=== PATIENT | female | born 1955 | race Caucasian/White ===

== ENCOUNTER → 2018-06-11 11:51 | Outpatient (CLI) | payer OTHER, SELFPAY ==
--- NOTE | 2018-06-11 | DI.RAD.S_ITS ---
PROCEDURE: XR HAND LT MIN 3V INDICATIONS: SPRAIN OF LEFT WRIST TECHNIQUE: 3 views of the hand(s) acquired. COMPARISON: [facility], [place], XR WRIST LT MIN 3V, 06/11/2018, 11:33. [facility], [place], HAND 3V RIGHT, 05/11/2014, 16:18. FINDINGS: Bones: No fractures or dislocations. Carpal bones are normally aligned. No suspicious bony lesions. Age-appropriate bony degenerative changes are seen. Soft tissues: No suspicious soft tissue calcifications. IMPRESSION: Unremarkable imaging examination for age. Dictated by: Chin Austin M.D. on 06/11/2018 at 11:06 Approved by: Chin Austin M.D. on 06/11/2018 at 11:07
--- NOTE | 2018-06-11 | DI.RAD.S_ITS ---
PROCEDURE: XR WRIST LT MIN 3V INDICATIONS: SPRAIN OF LEFT WRIST TECHNIQUE: 4 views of the wrist were acquired. COMPARISON: [facility], [place], XR HAND LT MIN 3V, 06/11/2018, 11:33. FINDINGS: Bones: No fractures or dislocations. Age-appropriate bony degenerative changes are seen. No suspicious bony lesions. Scaphoid view: No navicular fractures are seen. Soft tissues: No suspicious soft tissue calcifications. IMPRESSION: No displaced fractures are seen. If there is snuffbox tenderness (or other clinical suspicion for a fracture not seen on these images) then a repeat examination would be recommended in 10 to 14 days, following splinting. Dictated by: Chin Austin M.D. on 06/11/2018 at 11:07 Approved by: Chin Austin M.D. on 06/11/2018 at 11:08
== END ==
PROVIDERS: Family Provider Internal Medicine; PCP Internal Medicine; Visit Provider Internal Medicine
DX: S63.502A Unspecified sprain of left wrist, initial encounter (principal)
CPT/HCPCS: 73110; 73130

== ENCOUNTER → 2018-08-29 13:41 | Outpatient (CLI) | payer OTHER, SELFPAY ==
--- NOTE | 2018-08-29 | DI.RAD.S_ITS ---
PROCEDURE: XR CHEST 2V INDICATIONS: Acute bronchitis, unspecified TECHNIQUE: 2 views of the chest were acquired. COMPARISON: [facility], , CHEST 2 VIEW, 04/09/2017, 16:10. FINDINGS: Surgical changes and devices: None. Lungs and pleura: No pleural effusions or pneumothorax. Lungs are clear. Mediastinum: Mediastinal contours are normal. Heart size is normal. Bones and chest wall: No suspicious bony abnormalities. Mild lateral curvature of the spine. Soft tissues appear unremarkable. IMPRESSION: No acute disease. Dictated by: Alex Sanders M.D. on 08/29/2018 at 15:18 Approved by: Alex Sanders M.D. on 08/29/2018 at 15:19
== END ==
PROVIDERS: PCP Internal Medicine; Visit Provider Internal Medicine
DX: J20.9 Acute bronchitis, unspecified (principal)
CPT/HCPCS: 71046

== ENCOUNTER 2019-03-12 07:13 | Emergency (ER) | payer MEDICARE, OTHER, SELFPAY ==
[2019-03-12 07:20] VITALS: BP 146/74; PULSE 91; RESP 18; TEMP 36.6; O2SAT 95; BMI 36.8
--- NOTE | 2019-03-12 08:04 | ED_ITS ---
HPI - Eye Problem General Chief complaint: Eye Problems Stated complaint: thinks something is in right eye,draining pain Time Seen by Provider: 03/12/19 07:31 Source: patient Mode of arrival: ambulatory Limitations: no limitations History of Present Illness HPI Narrative: The patient presents to the emergency department complaining of a sharp pain, along with irritation, the medial aspect of her right eye for the last 3 days. Patient states she was outside while some trees were being cleared a few days ago, when she felt as though something blew into her eye. She states she attempted to irrigate with water, but that the eyes been progressively becoming more irritated since. Patient states she does not were contact lenses, and had LASIK procedure done in 2011. She denies any fevers, rhinorrhea, or other upper respiratory symptoms recently. She denies allergic rhinitis. She states her other eyes starting to become irritated as well. Patient states she has had a mucus type discharge which has been causing her eyelashes to be stuck together on the right in the morning. No other complaints at this time. No history of glaucoma. No headache or blurred vision. No globe pain. no temporal pain. Related Data Home Medications Medication Instructions Recorded Confirmed aspirin [Adult Low Dose Aspirin] 81 mg PO DAILY 03/12/19 03/12/19 metoprolol tartrate 25 mg PO DAILY 03/12/19 03/12/19 Previous Rx's Medication Instructions Recorded albuterol sulfate [Ventolin HFA] 0 puff INH Q4HP PRN #1 ea 04/09/17 benzonatate [Tessalon Perles] 100 mg PO TIDP PRN #10 cap 04/09/17 prednisone 20 mg PO QDAY #8 tab 04/09/17 gentamicin 1 drop EYE-BOTH BID 7 Days #5 ml 03/12/19 Allergies Allergy/AdvReac Type Severity Reaction Status Date / Time iodine [IODINE] Allergy Severe RASH Verified 03/12/19 07:44 Penicillins [PENICILLINS] Allergy Severe SWELLING Verified 03/12/19 07:44 morphine [MORPHINE] AdvReac Mild N/V Verified 03/12/19 07:44 MUSHROOMS Allergy Severe STOPPED Uncoded 03/12/19 07:44 BREATHING Review of Systems Constitutional Denies chills, Denies fever(s), Denies lethargy and Denies weakness Eyes Denies change in vision, Reports eye discharge, Reports irritation and Denies loss of vision ENT Ears, Nose, Mouth, and Throat: Denies change in voice, Denies neck pain and Denies sore throat Cardiovascular Denies chest pain, Denies irregular heart rhythm, Denies lightheadedness, Denies palpitations, Denies dyspnea, Denies dyspnea on exertion and Denies orthopnea Respiratory Denies cough, Denies dyspnea, Denies dyspnea on exertion and Denies wheezing Gastrointestinal Gastrointestinal: Denies abdominal pain, Denies change in bowel habits, Denies diarrhea, Denies nausea and Denies vomiting Genitourinary Denies hematuria, Denies flank pain, Denies urinary incontinence and Denies urinary urgency Musculoskeletal Denies neck pain Integumentary/Breasts Denies pruritus, Denies erythema, Denies rash and Denies wounds Neurologic Denies confusion, Denies loss of vision and Denies weakness Psychiatric Denies anxiety, Denies confusion, Denies depression, Denies homicidal ideation and Denies suicidal ideation Endocrine Denies palpitations Hematologic/Lymphatic Denies easy bruising Allergic/Immunologic Denies wheezing [facility] Medical History Asthma (Acute) Surgical History History of ankle surgery (Acute) History of appendectomy (Acute) Social History Smoking Status: Former smoker Social History Smoking Status: Former smoker Exam Initial Vital Signs Initial Vital Signs: Vital Signs Temperature 97.9 F 03/12/19 07:20 Pulse Rate 91 H 03/12/19 07:20 Respiratory Rate 18 03/12/19 07:20 Blood Pressure 146/74 H 03/12/19 07:20 Pulse Oximetry 95 03/12/19 07:20 Const General: cooperative and well developed Nutritional Appearance: well nourished Orientation: alert, awake, oriented x3 and not confused [facility] Head: normocephalic and atraumatic Ears: external ears normal Nose: external nose normal and No nasal discharge Face and sinus: face symmetric and No dry mucous membranes Mouth: oral mucosae normal and moist mucous membranes Teeth and gingiva: dentition normal Eyes General: appearance normal, both eyes and all related structures Eyelids: eyelids normal Conjunctivae: conjunctival abnormality ( injection, moderate) right Sclera: sclerae normal Pupils: PERRL EOM: EOM intact bilaterally Direct ophthalmoscopy: normal light reflex Other: Patient has a mild amount of mucus discharge her right eye. With fluorescein examination, patient is noted to have to 1 mm corneal abrasions at approximately the 8 o'clock position. No foreign body is noted with magnification. Lid eversion reveals no retained foreign body, including in the area where the patient is feeling maximal pain. there is a tiny, punctate abrasion of the mucosal surface of the patient's upper eyelid medially, in the area of the discomfort, but otherwise, no evidence of foreign material and no scleral abrasion in the area. Neck Neck: normal visual inspection, trachea midline, No lymphadenopathy, No midline deformity and No JVD Lymphatic: No lymphedema Chest Chest: normal inspection of the chest Resp Effort & Inspection: normal respiratory effort, able to speak in complete sentences, no respiratory distress and no use of accessory muscles Back/Spine/Pelvis Back: No CVA tenderness Cervical Spine: cervical ROM normal and No pain with cervical ROM Thoracic/Lumbar Spine: thoracic and lumbar spine normal to inspection Skin General: no rashes or lesions noted, No jaundice and No petechiae Neuro General: alert, oriented x3, gait normal and no focal motor deficits Speech: speech normal Extrem General: full ROM Psych Appearance: well kempt Mental Status: mental status grossly normal Attitude: cooperative Thought Content: normal and suicidality Judgment: judgment good Course Course Narrative: Patient was irrigated with a Dannie lens. Visual acuities were performed, as per nursing notes. I discussed with the patient that I had not identified any foreign body involving any of the structures of her eye. I discussed with her the punctate finding inside her medial upper lid, which could represent a small abrasion/puncture. I will put her on antibiotic drops, and have discussed with her that if her symptoms are not better in the next several days she will need to follow up with an ophthalmology specialist. Patient is agreeable to this plan, and we have discussed symptomatic management at home. Her is with her. We have discussed the usual indications for return. Orders Ordered: Discontinued Medications Proparacaine HCl (Parcaine 0.5% Ophth Noemi) 1 drops EYE-RIGHT NOW ONE Stop: 03/12/19 09:08 Last Admin: 03/12/19 08:35 Dose: 4 drop Vital Signs - 8 hr 03/12/19 07:20 Temperature 97.9 F Pulse Rate 91 H Respiratory Rate 18 Blood Pressure 146/74 H Pulse Oximetry 95 MDM - Eye Problem Medical Records Attestation: I reviewed the patient's medical records. Discharge Plan Departure Patient Disposition: Home Clinical Impression: Pain, eye, right Conjunctivitis Qualifiers: Conjunctivitis type: acute Acute conjunctivitis type: unspecified Laterality: right Qualified Code(s): H10.31 - Unspecified acute conjunctivitis, right eye Discharge Date/Time: 03/12/19 09:39 Interventions: ED Discharge Assessment Last Done: 03/12/19 09:39 Instructions: DI for Conjunctivitis, DI for Eye Pain Activity Restrictions/Additional Instructions: Full examination of your eye, including with magnification, reveals no evidence of foreign material. You have a couple of very small scratches on the surface of the eye though these are not in the area of your pain. There is evidence of a very tiny puncture mercy on the inside of your upper eyelid, near the area where you are hurting, and this may be evidence of a foreign piece of material that was there before. However, nothing has been visualized that can be removed. Please take the eyedrops, as directed, and if symptoms are not improved in the next several days, then you need to make an appointment to see the eyeletter. Prescriptions: New gentamicin 0.3 % drops 1 drop EYE-BOTH BID 7 Days Qty: 5 RF: 0 No Action prednisone 20 MG tablet 20 mg PO QDAY Qty: 8 RF: 0 benzonatate [Tessalon Perles] 100 MG capsule 100 mg PO TIDP PRNQty: 10 RF: 0 albuterol sulfate [Ventolin HFA] 90 MCG/PUFF HFA aerosol inhaler INH Q4HP PRNQty: 1 RF: 0 metoprolol tartrate 25 mg tablet 25 mg PO DAILY RF: 0 aspirin [Adult Low Dose Aspirin] 81 mg Tablet,Delayed Release (Dr/Ec) 81 mg PO DAILY RF: 0 Referrals: [facility] [Provider Group] Gabriella Watts MD [Primary Care Provider] -
[2019-03-12] MEDS: PROPARACAINE 0.5% OPHTH SOL 1 DROPS EYE-RIGHT (08:35)
--- NOTE | 2019-03-12 09:33 | PC.NURSE ---
Dannie lens to right eye to irrigate. pt tolerated 400 cc warm normal saline. needed to stop infusion and instill eye gtts and restart when eye became numb. MD aware. reports no difference with instillation. Md also aware.
[2019-03-12 09:39] VITALS: BP 127/72; PULSE 93; RESP 18; TEMP 36.6; O2SAT 99
--- NOTE | 2019-03-17 17:49 | CM.SWNOTE ---
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 Pt reported that she is feeling better. She is continuing to take the eye drops as prescribed. She reported that she has an appointment with an eye doctor on . ( 3 days from now) She did not have any questions about her discharge and expressed appreciation about the care received from the emergency room staff and the phone call.
== END 2019-03-12 09:39 | disposition home or self-care (01) ==
PROVIDERS: Emergency Provider Emergency Medicine; Family Provider Internal Medicine; PCP Internal Medicine
DX: H10.31 Unspecified acute conjunctivitis, right eye (principal)
CPT/HCPCS: 99283

== ENCOUNTER 2020-01-02 17:36 | Emergency (ER) | payer MEDICARE, OTHER, SELFPAY ==
[2020-01-02 17:46] VITALS: BP 175/83; PULSE 82; RESP 14; TEMP 36.8; O2SAT 95; BMI 38.0
[2020-01-02 18:48] LABS: RBC Urine None Seen (0-5/HPF)
[2020-01-02 18:57] LABS: Bacteria Urine Few (2-10); Culture Indicated Urine Cult Not Indicated; Mucus Urine 2+ (Negative); Squamous Epithelial Cell Urine 5-10 /HPF (0-5/HPF); WBC Urine 0-1/HPF (0-5/HPF)
--- NOTE | 2020-01-02 19:12 | ED_ITS ---
HPI - General Adult General Chief complaint: Urogenital-Female Stated complaint: abd pain, thinks UTI Time Seen by Provider: 01/02/20 18:51 Source: patient Mode of arrival: Ambulatory Limitations: no limitations History of Present Illness HPI narrative: 64-year-old female here for evaluation of left lower quadrant a bdominal pain. States the symptoms started within the past couple days. No nausea vomiting. Has some diarrhea over the past couple days but nothing today. She is also complaining of burning with urination. She also states she has been having some problems controlling her urine is specially when she is coughing and laughing and standing. This is not new. Has been going on since November. She has not followed up with claims support specialist her primary doctor for this. Related Data Home Medications Medication Instructions Recorded Confirmed aspirin [Adult Low Dose Aspirin] 81 mg PO DAILY 03/12/19 03/12/19 metoprolol tartrate 25 mg PO DAILY 03/12/19 03/12/19 Previous Rx's Medication Instructions Recorded albuterol sulfate [Ventolin HFA] 0 puff INH Q4HP PRN #1 ea 04/09/17 benzonatate [Tessalon Perles] 100 mg PO TIDP PRN #10 cap 04/09/17 prednisone 20 mg PO QDAY #8 tab 04/09/17 ciprofloxacin HCl 500 mg PO BID 10 Days #20 tab 01/02/20 fluconazole [Diflucan] 100 mg PO DAILY #2 tab 01/02/20 metronidazole [Flagyl] 500 mg PO TID 10 Days #30 tab 01/02/20 Allergies Allergy/AdvReac Type Severity Reaction Status Date / Time iodine [IODINE] Allergy Severe RASH Verified 01/02/20 17:46 Penicillins [PENICILLINS] Allergy Severe SWELLING Verified 01/02/20 17:46 morphine [MORPHINE] AdvReac Mild N/V Verified 01/02/20 17:46 MUSHROOMS Allergy Severe STOPPED Uncoded 03/12/19 07:44 BREATHING Review of Systems Constitutional Constitutional: Denies fever(s) Cardiovascular Cardiovascular: Denies chest pain and Denies dyspnea Respiratory Respiratory: Denies dyspnea Gastrointestinal Gastrointestinal: Reports abdominal pain and Denies change in stool character Genitourinary Genitourinary: Denies difficulty voiding, Reports dysuria, Reports urinary incontinence and Reports vaginal discharge Musculoskeletal Musculoskeletal: Denies arthralgias Integumentary/Breasts Skin/Breast: Denies rash Hematologic/Lymphatic Hematologic/Lymphatic: Denies easy bleeding and Denies easy bruising Patient History Medical History Asthma (Acute) Surgical History History of ankle surgery (Acute) History of appendectomy (Acute) Social History Smoking Status: Former smoker Smoking Status: Former smoker alcohol intake frequency: holidays/special occasions only Substance Use Type: does not use Exam Initial Vital Signs Initial Vital Signs: Vital Signs Temperature 98.2 F 01/02/20 17:46 Pulse Rate 82 01/02/20 17:46 Respiratory Rate 14 01/02/20 17:46 Blood Pressure 175/83 H 01/02/20 17:46 Pulse Oximetry 95 01/02/20 17:46 Const General: cooperative, comfortable, well developed, well groomed and No acute distress Limitations: mental status not altered HENME Head: normal to inspection and normocephalic Resp Effort & Inspection: normal respiratory effort Auscultation: clear to auscultation bilaterally Cardio Rate: regular rate Rhythm: regular rhythm GI Inspection: non-distended Palpation: soft, No firm and tender (Left lower quadrant) Back/Spine/Pelvis Back: No CVA tenderness Skin Lesions: no lesions Rashes: no rashes Neuro General: alert, awake and oriented x3 Cognition: normal cognition Speech: speech normal Extrem General: normal to inspection and capillary refill normal Psych Appearance: grossly normal and well kempt Scores GCS [place] coma scale eye opening: Spontaneous [place] coma scale verbal response: Orientated [place] coma scale motor response: Obey commands [place] coma scale total score: 15 Course Orders Ordered: ED Orders 01/02/20 18:26 Urine Culture Stat Urine Microscopic Stat 01/02/20 19:24 CT kidney ureter bladder (KUB) Stat 01/02/20 19:36 Complete Blood Count AUTO DIFF Stat Lipase Stat Discontinued Medications Ciprofloxacin (Cipro) 500 mg PO NOW ONE Stop: 01/02/20 20:23 Last Admin: 01/02/20 20:33 Dose: 500 mg Documented by: MICHAEL Sodium Chloride (Normal Saline 0.9%) 1,000 mls @ 1,000 mls/hr IV BOLUS ONE Stop: 01/02/20 20:10 Last Infusion: 01/02/20 20:57 Dose: 0 mls/hr Documented by: Admin: 01/02/20 19:54 Dose: 1,000 mls/hr Documented by: MICHAEL Ketorolac Tromethamine (Toradol) 30 mg IV NOW ONE Stop: 01/02/20 20:23 Last Admin: 01/02/20 20:33 Dose: 30 mg Documented by: MICHAEL Metronidazole (Metronidazole) 500 mg PO NOW ONE Stop: 01/02/20 20:23 Last Admin: 01/02/20 20:33 Dose: 500 mg Documented by: MICHAEL Vital Signs Vital signs: Vital Signs - 8 hr 01/02/20 17:46 01/02/20 19:57 01/02/20 21:17 Temperature 98.2 F Pulse Rate 82 85 70 Respiratory Rate 14 18 18 Blood Pressure 175/83 H Blood Pressure [Right Arm] 144/95 H 143/88 H Pulse Oximetry 95 99 98 Medical Decision Making Lab Data Lab results reviewed: Yes I reviewed the patient's lab results. Result diagrams: 01/02/20 19:36 Labs: Lab Results 01/02/20 01/02/20 01/02/20 Range/Units 18:26 19:36 19:36 WBC 13.4 H (4.5-11.0) X10^3/uL RBC 5.25 H (4.0-5.2) X10^6/uL Hgb 15.0 (12.0-16.0) g/dL Hct 44.9 (36-46) % MCV 85.4 (80-100) fL MCH 28.5 (26-34) PG MCHC 33.4 (30-36) % RDW 14.5 (11.6-14.8) % Plt Count 238 (150-400) X10^3/uL Neut % (Auto) 71.6 (50-75) % Lymph % (Auto) 19.3 L (25-40) % [place] % (Auto) 6.7 (3-14) % Eos % (Auto) 1.6 L (2-4) % Baso % (Auto) 0.8 (0-2) % Neut # (Auto) 9600 H (5023-1378) /uL Lymph # (Auto) 2600 (2167-0379) /uL [place] # (Auto) 900 (0-900) /uL Eos # (Auto) 200 (0-450) /uL Baso # (Auto) 100 (0-100) /uL Total Counted Cancelled Seg Neutrophils % Cancelled Band Neutrophils % Cancelled Lymphocytes % (Manual) Cancelled Atypical Lymphs % Cancelled Monocytes % (Manual) Cancelled Eosinophils % (Manual) Cancelled Basophils % (Manual) Cancelled Metamyelocytes % Cancelled Myelocytes % Cancelled Promyelocytes % Cancelled Blast Cells % Cancelled Neutrophils # (Manual) Cancelled Nucleated RBCs Cancelled Differential Comment Cancelled Hypersegmented Neuts Cancelled Hypogranular Neuts Cancelled Reactive Lymphocytes Cancelled Plasma Cells Cancelled Smudge Cells Cancelled Other Cell Type Cancelled Toxic Granulation Cancelled Toxic Vacuolation Cancelled Dohle Bodies Cancelled [place] Rods Cancelled WBC Morphology Comment Cancelled Platelet Estimate Cancelled Clumped Platelets Cancelled Plt Morphology Comment Cancelled RBC Morphology Cancelled Dimorphic RBCs Cancelled Polychromasia Cancelled Hypochromasia Cancelled Poikilocytosis Cancelled Basophilic Stippling Cancelled Anisocytosis Cancelled Microcytosis Cancelled Macrocytosis Cancelled Spherocytes Cancelled Pappenheimer Bodies Cancelled Sickle Cells Cancelled Target Cells Cancelled Tear Drop Cells Cancelled Ovalocytes Cancelled Stomatocytes Cancelled Helmet Cells Cancelled [place] Bodies Cancelled [place] Rings Cancelled [place] Cells Cancelled Acanthocytes (Spur) Cancelled Rouleaux Cancelled Schistocytes Cancelled Lipase 110 (23-300) U/L Urine RBC None seen (0-5/HPF) Urine WBC 0-1/hpf (0-5/HPF) Ur Squamous Epith Cells 5-10 /hpf H (0-5/HPF) Urine Bacteria Few (2-10) H (None) Urine Mucus 2+ H (Negative) Ur Culture Indicated? Cult not indicated Urine Dip Bedside Urine Glucose Negative Bedside Urine Bilirubin - Negative Bedside Urine Ketone - Negative Urine Specific [place] 1.025 Bedside Urine Occult Blood - Negative Bedside Urine pH 6 Bedside Urine Protein +/- 15 Bedside Urine Urobilinogen +/- 1mg Bedside Urine Nitrite - Negative Bedside Urine Leukocytes - Negative Esterase Point of care testing: Urine Dip Bedside Urine Glucose Negative Bedside Urine Bilirubin - Negative Bedside Urine Ketone - Negative Urine Specific [place] 1.025 Bedside Urine Occult Blood - Negative Bedside Urine pH 6 Bedside Urine Protein +/- 15 Bedside Urine Urobilinogen +/- 1mg Bedside Urine Nitrite - Negative Bedside Urine Leukocytes - Negative Esterase Imaging Data CT scan - abdomen/pelvis: Radiologist's Impression: [address] [address] [address] Scan Report Signed Patient: Dano Mike#: [id number] : 4Acct:[id number] Age/Sex: 64 / FDate of Service: 01/02/20 Loc: ED Accession Number: [id number] Procedure: CT kidney ureter bladder (KUB) Ordering Provider: Montrell Del Angel D.O. PROCEDURE: CT KIDNEY URETER BLADDER (KUB) INDICATIONS: LLQ ABD pain TECHNIQUE: Noncontrast 5 mm thick sections acquired from the diaphragms to the symphysis. 5 mm thick coronal and sagittal reformats were then performed. For radiation dose reduction, the following was used: automated exposure control, adjustment of mA and/or kV according to patient size. COMPARISON: [facility], CT, PE STUDY (CTA CHEST), 10/07/2015, 18:21. FINDINGS: Image quality: Excellent. Lung bases: Lung bases are clear. Heart size is normal. There is a eipil-zr-ilbuecel sized hiatal hernia. Urinary system: There is a 7 x 3 mm elongated stone in the superior pole of the right kidney. No right hydronephrosis. Both kidneys are normal in size without perinephric fat stranding. Parapelvic cysts are noted in right kidney. Both ureters appear non- dilated throughout their expected courses. Bladder wall thickness is normal; no calcified bladder stones. Other solid organs: There is moderate to severe hepatic steatosis. Liver is normal in size. Gallbladder is normal. Pancreas is normal in contours. Spleen is normal in size. No adrenal nodules. Peritoneum and bowel: There numerous colonic diverticula. There is mild fat stranding in the pelvis adjacent to sigmoid colon consistent with acute diverticulitis. No diverticular perforation or abscess. Unenhanced bowel loops demonstrate normal wall thickness and caliber. No free fluid or air. Nodes and vessels: No retroperitoneal or mesenteric adenopathy by size criteria. Aorta and inferior vena cava are normal in caliber. Abdominal wall: No ventral hernias. Pelvis: Uterus and ovaries are unremarkable. No free pelvic fluid. No inguinal hernias or adenopathy. Bones: No suspicious bony lesions. No vertebral body compression fractures. IMPRESSION: 1. Uncomplicated diverticulitis of the sigmoid colon. 2. Nephrolithiasis of the right kidney. No hydronephrosis. 3. Moderate hepatic steatosis. 4. A fakhd-hr-bgjjynfi-sized hiatal hernia. Dictated by: Monique Kapadia M.D. on 01/02/2020 at 19:53 Approved by: Monique Kapadia M.D. on 01/02/2020 at 20:00 [facility] Narrative Medical decision making narrative: Patient states she is allergic to iodine. The CT scan was performed without contrast which shows an uncomplicated diverticulitis. a bmp was mistakenly not ordered this patient however do not feel that it would not change outcome. Was given antibiotics for her diverticulitis. This does explain her leukocytosis and her left lower quadrant abdominal pain. Urinalysis is not consistent with a urinary tract infection. A culture was pending at discharge. She does describe symptoms stress incontinence. Informed her that she needs to talk with her primary doctor and also a claims support specialist provider about this. Patient also thinks that she may have a yeast infection. She was given Diflucan for this. She was given return precautions and follow-up instructions. She expressed understanding and agreement with plan . Discharge Plan Departure Patient Disposition: Home Clinical Impression: Diverticulitis, Urinary, incontinence, stress female Discharge Date/Time: 01/02/20 21:18 Instructions: Urinary Incontinence -- Female, DI for Diverticulitis Activity Restrictions/Additional Instructions: Take all of the medications as directed. [facility] [place]. I do recommend you talk with your primary doctor about a referral to see claims support specialist to talk about your urinary incontinence. Return to the emergency department for any new or worsening symptoms Prescriptions: New ciprofloxacin HCl 500 mg tablet 500 mg PO BID 10 Days Qty: 20 RF: 0 metronidazole [Flagyl] 500 mg tablet 500 mg PO TID 10 Days Qty: 30 RF: 0 fluconazole [Diflucan] 100 mg tablet 100 mg PO DAILY Qty: 2 RF: 0 No Action prednisone 20 MG tablet 20 mg PO QDAY Qty: 8 RF: 0 benzonatate [Tessalon Perles] 100 MG capsule 100 mg PO TIDP PRNQty: 10 RF: 0 albuterol sulfate [Ventolin HFA] 90 MCG/PUFF HFA aerosol inhaler 0 puff INH Q4HP PRNQty: 1 RF: 0 metoprolol tartrate 25 mg tablet 25 mg PO DAILY RF: 0 aspirin [Adult Low Dose Aspirin] 81 mg Tablet,Delayed Release (Dr/Ec) 81 mg PO DAILY RF: 0 Referrals: Gabriella Watts MD [Primary Care Provider] -
--- NOTE | 2020-01-02 19:24 | DI.CT.S_ITS ---
PROCEDURE: CT KIDNEY URETER BLADDER (KUB) INDICATIONS: LLQ ABD pain TECHNIQUE: Noncontrast 5 mm thick sections acquired from the diaphragms to the symphysis. 5 mm thick coronal and sagittal reformats were then performed. For radiation dose reduction, the following was used: automated exposure control, adjustment of mA and/or kV according to patient size. COMPARISON: [facility], CT, PE STUDY (CTA CHEST), 10/07/2015, 18:21. FINDINGS: Image quality: Excellent. Lung bases: Lung bases are clear. Heart size is normal. There is a vydfs-yq-ayhthaxn sized hiatal hernia. Urinary system: There is a 7 x 3 mm elongated stone in the superior pole of the right kidney. No right hydronephrosis. Both kidneys are normal in size without perinephric fat stranding. Parapelvic cysts are noted in right kidney. Both ureters appear non-dilated throughout their expected courses. Bladder wall thickness is normal; no calcified bladder stones. Other solid organs: There is moderate to severe hepatic steatosis. Liver is normal in size. Gallbladder is normal. Pancreas is normal in contours. Spleen is normal in size. No adrenal nodules. Peritoneum and bowel: There numerous colonic diverticula. There is mild fat stranding in the pelvis adjacent to sigmoid colon consistent with acute diverticulitis. No diverticular perforation or abscess. Unenhanced bowel loops demonstrate normal wall thickness and caliber. No free fluid or air. Nodes and vessels: No retroperitoneal or mesenteric adenopathy by size criteria. Aorta and inferior vena cava are normal in caliber. Abdominal wall: No ventral hernias. Pelvis: Uterus and ovaries are unremarkable. No free pelvic fluid. No inguinal hernias or adenopathy. Bones: No suspicious bony lesions. No vertebral body compression fractures. IMPRESSION: 1. Uncomplicated diverticulitis of the sigmoid colon. 2. Nephrolithiasis of the right kidney. No hydronephrosis. 3. Moderate hepatic steatosis. 4. A mikcn-ty-hhxekzbc-sized hiatal hernia. Dictated by: Monique Kapadia M.D. on 01/02/2020 at 19:53 Approved by: Monique Kapadia M.D. on 01/02/2020 at 20:00
[2020-01-02 19:43] LABS: Add Manual Diff / Slide Review NO; Basophils Absolute Auto 100 /uL (0-100); Basophils Percent Auto 0.8 % (0-2); Eosinophils Absolute Auto 200 /uL (0-450); Eosinophils Percent Auto 1.6 % (2-4); Hematocrit 44.9 % (36-46); Lymphocytes Absolute Auto 2600 /uL (1100-4500); Lymphocytes Percent Auto 19.3 % (25-40); Mean Corpuscular HGB Conc 33.4 % (30-36); Mean Corpuscular Hemoglobin 28.5 PG (26-34); Mean Corpuscular Volume 85.4 fL (80-100); Monocytes Absolute Auto 900 /uL (0-900); Monocytes Percent Auto 6.7 % (3-14); Neutrophils Absolute Auto 9600 /uL (1500-7000); Neutrophils Percent Auto 71.6 % (50-75); Platelet Count 238 X10^3/uL (150-400); Red Blood Cell Count 5.25 X10^6/uL (4.0-5.2); Red Cell Distribution Width 14.5 % (11.6-14.8); White Blood Cell Count 13.4 X10^3/uL (4.5-11.0)
[2020-01-02 19:54] LABS: Lipase 110 U/L (23-300)
[2020-01-02] MEDS: SODIUM CHLORIDE 0.9% 1,000 ML 1000 ML IV (19:54)
[2020-01-02 19:57] VITALS: BP 144/95; PULSE 85; RESP 18; O2SAT 99
[2020-01-02] MEDS: CIPROFLOXACIN 500 MG TABLET PO (20:33)
[2020-01-02] MEDS: KETOROLAC 60 MG/2 ML VIAL 30 MG IV (20:33)
[2020-01-02] MEDS: metroNIDAZOLE 250 MG TABLET 500 MG PO (20:33)
[2020-01-02 21:17] VITALS: BP 143/88; PULSE 70; RESP 18; O2SAT 98
== END 2020-01-02 21:18 | disposition home or self-care (01) ==
PROVIDERS: Emergency Provider Emergency Medicine; Family Provider Internal Medicine; PCP Internal Medicine
DX: K57.92 Diverticulitis of intestine, part unspecified, without perforation or abscess without bleeding (principal); N39.3 Stress incontinence (female) (male)
CPT/HCPCS: 36415; 74176; 81003; 81015; 83690; 85025; 87086; 96361; 96374; 99284; J1885

== ENCOUNTER → 2020-06-25 13:04 | Outpatient (CLI) | payer MEDICARE, OTHER, SELFPAY ==
--- NOTE | 2020-06-25 | DI.MRI.S_ITS ---
PROCEDURE: MR SHOULDER RT WO CON INDICATIONS: Pain in right shoulder TECHNIQUE: Noncontrast oblique coronal T2 fast spin echo with fat saturation, oblique sagittal T1 spin echo and T2 fast spin echo with fat saturation, axial T1 spin echo and T2 fast spin echo with fat saturation through the shoulder. COMPARISON: [facility] [place], [place], XR SHOULDER 2+ VIEWS RIGHT, 06/21/2020, 14:31. FINDINGS: Image quality: Excellent. Rotator cuff: There is full-thickness tearing of the mid/posterior supraspinatus tendon at the humeral insertion site, measuring roughly 15 mm anteroposterior. There is high-grade partial-thickness articular surface tearing extending into the posterior supraspinatus tendon at the musculotendinous junction. There is low-grade partial-thickness intrasubstance tearing of the anterior infraspinatus tendon at the musculotendinous junction. There is ill-defined T2 signal elevation within the mid and superior subscapularis tendon at the humeral insertion site, indicating time tendinopathy. 5 mm diameter superimposed moderate grade articular surface tear of the mid subscapularis tendon at the musculotendinous junction. Teres minor tendon is intact. There is mild supraspinatus atrophy. Bones and bursae: No bone marrow contusions or fractures. Moderate acromioclavicular joint degeneration. The acromion demonstrates conventional anatomy, without an os acromiale. No pathologic subacromial-subdeltoid or subcoracoid bursal fluid is present. Capsule and soft tissues: In the absence of intra-articular contrast, the labrum and glenohumeral ligaments appear intact. The long head of the biceps tendon demonstrates normal location and moderate grade partial thickness tearing. The rotator interval appears normal, without fibrosis. The coracohumeral ligament is normal in thickness. IMPRESSION: 1. Full-thickness tearing of the supraspinatus tendon as described above. Supraspinatus atrophy. 2. High-grade articular surface tearing of the posterior supraspinatus. 3. Partial-thickness tears of the subscapularis and infraspinatus tendons. 4. Partial thickness biceps tendon tear. 5. Acromioclavicular joint osteoarthritis. Dictated by: Chase Goldsmith M.D. on 06/25/2020 at 14:01 Approved by: Chase Goldsmith M.D. on 06/25/2020 at 14:05
== END ==
PROVIDERS: Family Provider Internal Medicine; PCP Internal Medicine; Referring Provider Internal Medicine; Visit Provider Orthopaedic Surgery
DX: M25.511 Pain in right shoulder (principal); M75.121 Complete rotator cuff tear or rupture of right shoulder, not specified as traumatic; S46.111A Strain of muscle, fascia and tendon of long head of biceps, right arm, initial encounter; M19.011 Primary osteoarthritis, right shoulder
CPT/HCPCS: 73221

== ENCOUNTER 2022-03-31 13:08 | Emergency (ER) | payer MEDICARE, OTHER, SELFPAY ==
[2022-03-31 13:30] VITALS: BP 181/102; PULSE 104; RESP 16; TEMP 36.7; O2SAT 95; BMI 36.3
--- NOTE | 2022-03-31 15:30 | ED_ITS ---
HPI - Skin/Abscess/Foreign Bdy <Sal Anaya PA-C - Last Filed: 03/31/22 16:22> General Chief complaint: Skin/Abscess/Foreign Body Stated complaint: rash in pubic area Time Seen by Provider: 03/31/22 15:02 Mode of arrival: Family Vehicle History of Present Illness HPI narrative: This is a 67-year-old female presents to the emergency department due to a groin rash for the last couple of months. She has tried topical Neosporin, vitamin-D, and multiple other ointments without relief which have all been [id number]. Denies any fevers, nausea, vomiting, or any other concerning signs or symptoms. States that it oliveira to urinate as well. Related Data Home Medications Medication Instructions Recorded Confirmed aspirin 81 mg tablet,delayed 81 mg PO DAILY 03/12/19 03/12/19 release (Adult Low Dose Aspirin) metoprolol tartrate 25 mg tablet 25 mg PO DAILY 03/12/19 03/12/19 Previous Rx's Medication Instructions Recorded albuterol sulfate 90 mcg/actuation 0 puff INH Q4HP PRN #1 ea 04/09/17 aerosol inhaler (Ventolin HFA) benzonatate 100 mg capsule 100 mg PO TIDP PRN #10 cap 04/09/17 (Tessalon Perles) prednisone 20 mg tablet 20 mg PO QDAY #8 tab 04/09/17 fluconazole 100 mg tablet 100 mg PO DAILY #2 tab 01/02/20 (Diflucan) clotrimazole 1 % topical cream 1 applic TOPICAL BID 28 Days #45 g 03/31/22 terbinafine HCl 250 mg tablet 250 mg PO DAILY #14 tab 03/31/22 Allergies Allergy/AdvReac Type Severity Reaction Status Date / Time iodine [IODINE] Allergy Severe RASH Verified 03/31/22 13:34 Penicillins [PENICILLINS] Allergy Severe SWELLING Verified 03/31/22 13:34 morphine [MORPHINE] AdvReac Mild N/V Verified 03/31/22 13:34 MUSHROOMS Allergy Severe STOPPED Uncoded 03/31/22 13:34 BREATHING Review of Systems <Sal Anaya PA-C - Last Filed: 03/31/22 16:22> Review of Systems Narrative: Positive for rash, dysuria Negative for fevers, nausea, abdominal pain, or vomiting. Patient History <Sal Anaya PA-C - Last Filed: 03/31/22 16:22> Medical History (Updated 03/31/22 @ 15:38 by Sal Anaya PA-C) Asthma Surgical History History of ankle surgery History of appendectomy Social History Smoking Status: Former smoker Smoking Status: Former smoker alcohol intake frequency: other Substance Use Type: does not use Exam <Sal Anaya PA-C - Last Filed: 03/31/22 16:22> Narrative Exam Narrative: GENERAL: Well-developed patient, in mild distress. HEAD: Atraumatic. Normocephalic. EYES: Pupils equal round and reactive. Extraocular motions intact. No scleral icterus. No injection or drainage. ENT: Nose without bleeding, purulent drainage. Throat without erythema, tonsillar hypertrophy or exudate. Airway patent. NECK: Trachea midline. Non tender CARDIOVASCULAR: Regular rate and rhythm without murmurs, gallops, or rubs. RESPIRATORY: Clear to auscultation. Breath sounds equal bilaterally. No wheezes, rales, or rhonchi. GASTROINTESTINAL: Abdomen soft, non-tender, nondistended. EXTREMITIES: No edema or joint tenderness. BACK: Nontender without deformity or crepitance. No flank tenderness. NEURO: AOx3. SKIN: Scaling and erythematous rash to pelvic area with multiple satellite lesions. No spreading erythema or warmth to the skin. Initial Vital Signs Initial Vital Signs: Vital Signs Temperature 98.0 F 03/31/22 13:30 Pulse Rate 104 H 03/31/22 13:30 Respiratory Rate 16 03/31/22 13:30 Blood Pressure 181/102 H 03/31/22 13:30 Pulse Oximetry 95 03/31/22 13:30 <Lilo Dooley DO - Last Filed: 04/01/22 08:50> Initial Vital Signs Initial Vital Signs: Vital Signs Temperature 98.0 F 03/31/22 13:30 Pulse Rate 104 H 03/31/22 13:30 Respiratory Rate 16 03/31/22 13:30 Blood Pressure 181/102 H 03/31/22 13:30 Pulse Oximetry 95 03/31/22 13:30 Course <Sal Anaya PA-C - Last Filed: 03/31/22 16:22> Orders Ordered: ED Orders 03/31/22 15:30 Urinalysis and Microscopic Stat 03/31/22 15:42 Ictotest Urine Stat Vital Signs Vital signs: Vital Signs - 8 hr 03/31/22 13:30 Temperature 98.0 F Pulse Rate 104 H Respiratory Rate 16 Blood Pressure 181/102 H Pulse Oximetry 95 <DO Best Schwarz Last Filed: 04/01/22 08:50> Orders Ordered: ED Orders 03/31/22 15:30 Urinalysis and Microscopic Stat 03/31/22 15:42 Ictotest Urine Stat Vital Signs Vital signs: Vital Signs - 8 hr 03/31/22 13:30 Temperature 98.0 F Pulse Rate 104 H Respiratory Rate 16 Blood Pressure 181/102 H Pulse Oximetry 95 MDM - Skin/Abscess/Foreign Bdy <Sal Anaya PA-C - Last Filed: 03/31/22 16:22> Lab Data Labs: Lab Results 03/31/22 Range/Units 15:42 Urine Color Yellow Urine Appearance Cloudy Urine pH 5.0 (4.5-8.0) Ur Specific [place] >=1.030 H (1.000-1.035) Urine Protein 1+ H (Negative) Urine Glucose (UA) 2+ H (Negative) g/dL Urine Ketones Trace H (NEGATIVE) Urine Occult Blood Trace-intact (Negative) Urine Nitrate Negative (Negative) Urine Bilirubin 1+ H (NEGATIVE) Ur Bilirubin Confirm Negative (Negative) Urine Urobilinogen 0.2 (0.2) E.U./dL Ur Leukocyte Esterase Negative (NEGATIVE) Urine RBC 0-1/hpf (0-5/HPF) Urine WBC 0-1/hpf (0-5/HPF) Ur Squamous Epith Cells 1-5 /hpf (0-5/HPF) Amorphous Sediment 4+ Urine Bacteria None seen (None) Urine Mucus 1+ H (Negative) Ur Culture Indicated? Cult not indicated MDM Narrative Medical decision making narrative: 67-year-old female presents to the emergency department due to a suspected tinea cruris. No evidence of underlying cellulitis. Will treat with oral and topical antifungals due to the extensive rash. Urinalysis showed no evidence of UTI. <DO Best Schwarz Last Filed: 04/01/22 08:50> Lab Data Labs: Lab Results 03/31/22 Range/Units 15:42 Urine Color Yellow Urine Appearance Cloudy Urine pH 5.0 (4.5-8.0) Ur Specific [place] >=1.030 H (1.000-1.035) Urine Protein 1+ H (Negative) Urine Glucose (UA) 2+ H (Negative) g/dL Urine Ketones Trace H (NEGATIVE) Urine Occult Blood Trace-intact (Negative) Urine Nitrate Negative (Negative) Urine Bilirubin 1+ H (NEGATIVE) Ur Bilirubin Confirm Negative (Negative) Urine Urobilinogen 0.2 (0.2) E.U./dL Ur Leukocyte Esterase Negative (NEGATIVE) Urine RBC 0-1/hpf (0-5/HPF) Urine WBC 0-1/hpf (0-5/HPF) Ur Squamous Epith Cells 1-5 /hpf (0-5/HPF) Amorphous Sediment 4+ Urine Bacteria None seen (None) Urine Mucus 1+ H (Negative) Ur Culture Indicated? Cult not indicated Discharge Plan Departure Patient Disposition: Home Clinical Impression: Tinea cruris Instructions: Jock Itch Activity Restrictions/Additional Instructions: Thank you for coming to the [facility] Emergency Department today. It appears he of a fungal infection tear pelvic area. Please use the topical and oral antifungal medications prescribed in the should help with his symptoms. 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 I hope you feel better soon. Prescriptions: New clotrimazole 1 % cream 1 applic topical BID 28 Days Qty: 45 2RF terbinafine HCl 250 mg tablet 250 mg PO DAILY Qty: 14 0RF No Action prednisone 20 MG tablet 20 mg PO QDAY Qty: 8 0RF benzonatate [Tessalon Perles] 100 MG capsule 100 mg PO TIDP PRNQty: 10 0RF albuterol sulfate [Ventolin HFA] 90 MCG/PUFF HFA aerosol inhaler 0 puff INH Q4HP PRNQty: 1 0RF fluconazole [Diflucan] 100 mg tablet 100 mg PO DAILY Qty: 2 0RF Rx Instructions: use as directed metoprolol tartrate 25 mg tablet 25 mg PO DAILY 0RF Label Comments: take 1/2 tablet by mouth once daily Rx Instructions: takes 1/2 pill daily aspirin [Adult Low Dose Aspirin] 81 mg Tablet,Delayed Release (/Ec) 81 mg PO DAILY 0RF Referrals: Gabriella Watts MD [Primary Care Provider] - <Lilo Dooley DO - Last Filed: 04/01/22 08:50> Cosign ED Attending Preetiature Attestation: I was immediately available in the department for consultation. Documentation has been reviewed. I agree with assessment and plan.
[2022-03-31 16:04] LABS: Appearance Urine UA CLOUDY; Bilirubin Urine UA 1+ (NEGATIVE); Color Urine UA YELLOW; Glucose Urine UA 2+ g/dL (Negative); Ketones Urine UA TRACE (NEGATIVE); Leukocyte Esterase Urine UA NEGATIVE (NEGATIVE); Nitrite Urine UA NEGATIVE (Negative); Occult Blood Urine UA TRACE-INTACT (Negative); Protein Urine UA 1+ (Negative); Specific Gravity Urine UA >=1.030 (1.000-1.035); Urobilinogen Urine UA 0.2 E.U./dL (0.2)
[2022-03-31 16:20] LABS: Amorphous Sediment Urine 4+; Bacteria Urine None Seen; Culture Indicated Urine Cult Not Indicated; Ictotest Urine Negative (Negative); Mucus Urine 1+ (Negative); RBC Urine 0-1/HPF (0-5/HPF); Squamous Epithelial Cell Urine 1-5 /HPF (0-5/HPF); WBC Urine 0-1/HPF (0-5/HPF)
[2022-03-31 16:29] VITALS: BP 142/74; PULSE 111; RESP 18; O2SAT 94
== END 2022-03-31 16:31 | disposition home or self-care (01) ==
PROVIDERS: Emergency Provider Physician Assistant Medical; Family Provider Internal Medicine; PCP Internal Medicine
DX: B35.6 Tinea cruris (principal)
CPT/HCPCS: 81001; 99281; 99282

== ENCOUNTER 2023-05-29 20:56 | Emergency (ER) | payer MEDICARE, OTHER, SELFPAY ==
[2023-05-29 21:12] VITALS: BP 162/78; PULSE 102; RESP 16; TEMP 36.5; O2SAT 94; BMI 35.0
--- NOTE | 2023-05-29 21:17 | DI.RAD.S_ITS ---
PROCEDURE: XR HIP W PEL IF DONE RT 2V INDICATIONS: fall with pain to right hip, unable to bear weight. TECHNIQUE: AP pelvis with lateral view of the right hip. COMPARISON: None. FINDINGS: Bones: No displaced fractures or dislocations. Pelvic ring appears intact. No suspicious bony lesions. Soft tissues: The visualized bowel gas pattern is normal. No suspicious soft tissue calcifications. IMPRESSION: 1. No displaced fracture or dislocation. Dictated by: Teja Nava M.D. on 05/30/2023 at 0:44 Approved by: Teja Nava M.D. on 05/30/2023 at 0:45
--- NOTE | 2023-05-29 21:17 | DI.RAD.S_ITS ---
PROCEDURE: XR SHOULDER RT MIN 2V INDICATIONS: fall with pain the shoulder to elbow TECHNIQUE: 2 views of the shoulder were acquired. COMPARISON: [facility], [place], XR HUMERUS RT 2V, 05/29/2023, 21:20. [facility], [place], SHOULDER MINIMUM 2 VIEW LEFT, 12/29/2011, 15:43. FINDINGS: Bones: No fractures or dislocations. No suspicious bony lesions. Visualized ribs appear intact. Soft tissues: There are small calcifications along the distal superior rotator cuff consistent with calcific tendinitis. IMPRESSION: 1. No acute fracture or dislocation. 2. Calcific tendinitis of the distal superior cuff. Dictated by: Teja Nava M.D. on 05/29/2023 at 22:41 Approved by: Teja Nava M.D. on 05/29/2023 at 22:42
--- NOTE | 2023-05-29 21:17 | DI.RAD.S_ITS ---
PROCEDURE: XR HUMERUS RT 2V INDICATIONS: fall with pain the shoulder to elbow TECHNIQUE: 2 views of the humerus were acquired. COMPARISON: [facility], , HUMERUS 2V LEFT, 12/29/2011, 15:43. FINDINGS: Bones: No fractures or dislocations. No suspicious bony lesions. Soft tissues: There are small calcifications along the distal rotator cuff consistent with calcific tendinitis. IMPRESSION: 1. No fracture or dislocation. 2. Calcific tendinitis of the distal rotator cuff. Dictated by: Teja Nava M.D. on 05/29/2023 at 22:40 Approved by: Teja Nava M.D. on 05/29/2023 at 22:41
--- NOTE | 2023-05-29 22:46 | ED_ITS ---
HPI - Fall General Chief Complaint: Fall Stated Complaint: fall, rt sided pain Time Seen by Provider: 05/29/23 21:33 Source: patient Mode of arrival: Wheelchair History of Present Illness HPI Narrative: Patient is a 68-year-old female. Not on anticoagulation. She is here for evaluation of injuries that she sustained when she states that she walked into her house and tripped over a 2 x 4 landing on her right side. Family states that it took about an hour in order to get her up off the ground because of the discomfort that she was in. She reports pain to her right upper arm and also her right hip. She did not hit her head. There was no loss of consciousness. She is no other injuries from the event. Related Data Home Medications Medication Instructions Recorded Confirmed aspirin 81 mg tablet,delayed 81 mg PO DAILY 03/12/19 03/12/19 release (Adult Low Dose Aspirin) metoprolol tartrate 25 mg tablet 25 mg PO DAILY 03/12/19 03/12/19 Previous Rx's Medication Instructions Recorded albuterol sulfate 90 mcg/actuation 0 puff INH Q4HP PRN #1 ea 04/09/17 aerosol inhaler (Ventolin HFA) benzonatate 100 mg capsule 100 mg PO TIDP PRN #10 caps 04/09/17 (Tessalon Perles) prednisone 20 mg tablet 20 mg PO QDAY #8 tabs 04/09/17 fluconazole 100 mg tablet 100 mg PO DAILY #2 tabs 01/02/20 (Diflucan) clotrimazole 1 % topical cream 1 applic topical BID 4 weeks #45 03/31/22 grams terbinafine HCl 250 mg tablet 250 mg PO DAILY #14 tabs 03/31/22 Allergies Allergy/AdvReac Type Severity Reaction Status Date / Time iodine [IODINE] Allergy Severe RASH Verified 03/31/22 13:34 Penicillins [PENICILLINS] Allergy Severe SWELLING Verified 03/31/22 13:34 morphine [MORPHINE] AdvReac Mild N/V Verified 03/31/22 13:34 MUSHROOMS Allergy Severe STOPPED Uncoded 03/31/22 13:34 BREATHING Review of Systems Constitutional Constitutional: Reports system reviewed and no additional complaints, except as documented Musculoskeletal Musculoskeletal: Reports system reviewed and no additional complaints, except as documented Integumentary/Breasts Skin/Breast: Reports system reviewed and no additional complaints, except as documented Neurologic Neurologic: Reports system reviewed and no additional complaints, except as documented Hematologic/Lymphatic On Anticoagulants: No Patient History Medical History (Updated 05/30/23 @ 01:06 by Montrell Del Angel DO) Asthma Surgical History History of ankle surgery History of appendectomy Social History Smoking Status: Former smoker Smoking Status: Former smoker alcohol intake frequency: other Substance Use Type: does not use Exam Initial Vital Signs Initial Vital Signs: Vital Signs Temperature 97.7 F 05/29/23 21:12 Pulse Rate 102 H 05/29/23 21:12 Respiratory Rate 16 05/29/23 21:12 Blood Pressure 162/78 H 05/29/23 21:12 Pulse Oximetry 94 05/29/23 21:12 Oxygen Delivery Method Room Air 05/29/23 21:12 Const General: cooperative and No ill appearing HENMT Head: normal to inspection and normocephalic Resp Effort & Inspection: normal respiratory effort Cardio Rate: regular rate Skin General: no rashes or lesions noted Neuro General: patient alert, patient awake and patient oriented x3 Cognition: normal cognition Extrem Other: Discomfort with any movement of the right upper extremity. Tenderness to the right hemipelvis. Course Orders Ordered: ED Orders 05/29/23 21:17 XR hip w pel if done RT 2V Stat XR humerus RT 2V Stat XR shoulder RT min 2V Stat Hydrocodone Bitart/Acetaminophen (Hydrocodone/Acet 5/325 Prepack) 1 bottle MISC SEEINSTR ONE Stop: 05/30/23 01:02 Discontinued Medications Hydromorphone HCl (Hydromorphone 0.5 Mg Inj) 0.5 mg IV NOW ONE Stop: 05/29/23 22:52 Last Admin: 05/29/23 22:54 Dose: 0.5 mg Documented By: OW Morphine Sulfate (Morphine 4 Mg/Ml Inj) 4 mg IV NOW ONE Stop: 05/29/23 22:48 Last Admin: 05/29/23 23:30 Dose: Not Given Documented By: Vital Signs Vital signs: Vital Signs - 8 hr 05/29/23 21:12 05/29/23 23:01 05/30/23 00:36 Temperature 97.7 F Pulse Rate 102 H 88 92 H Respiratory Rate 16 20 18 Blood Pressure 162/78 H 152/72 H 156/69 H Pulse Oximetry 94 92 94 Oxygen Delivery Method Room Air Room Air Room Air MDM - Fall Imaging Data Extremity x-ray #1: Radiologist's Impression: PROCEDURE:? XR SHOULDER RT MIN 2V ? INDICATIONS:? fall with pain the shoulder to elbow ? TECHNIQUE:? 2 views of the shoulder were acquired.? ? COMPARISON:? [facility], XR HUMERUS RT 2V, 05/29/2023, 21:20.? [facility], SHOULDER MINIMUM 2 VIEW LEFT, 12/29/2011, 15:43. ? FINDINGS:? ? Bones:? No fractures or dislocations.? No suspicious bony lesions.? Visualized ribs appear intact.? ? Soft tissues:? There are small calcifications along the distal superior rotator cuff consistent with calcific tendinitis. ? IMPRESSION:? ? 1. No acute fracture or dislocation. ? 2. Calcific tendinitis of the distal superior cuff. Extremity x-ray #2: Radiologist's Impression: PROCEDURE:? XR HIP W PEL IF DONE RT 2V ? INDICATIONS:? fall with pain to right hip, unable to bear weight. ? TECHNIQUE:? AP pelvis with lateral view of the right hip. ? COMPARISON:? None. ? FINDINGS:? ? Bones:? No displaced fractures or dislocations.? Pelvic ring appears intact.? No suspicious bony lesions.? ? Soft tissues:? The visualized bowel gas pattern is normal.? No suspicious soft tissue calcifications.? ? ? IMPRESSION:? ? 1. No displaced fracture or dislocation. Extremity x-ray #3: Radiologist's Impression: PROCEDURE:? XR HUMERUS RT 2V ? INDICATIONS:? fall with pain the shoulder to elbow ? TECHNIQUE:? 2 views of the humerus were acquired.? ? COMPARISON:? [facility], HUMERUS 2V LEFT, 12/29/2011, 15:43. ? FINDINGS:? ? Bones:? No fractures or dislocations.? No suspicious bony lesions.? ? Soft tissues:? There are small calcifications along the distal rotator cuff consistent with calcific tendinitis. ? IMPRESSION:? ? 1. No fracture or dislocation. ? 2. Calcific tendinitis of the distal rotator cuff. [facility] Narrative Medical decision making narrative: This was a mechanical fall. X-ray showed no acute pathology. No other injuries from the event reported from the patient. Not on anticoagulation. Will discharge patient home with symptom control. She was given return precautions. Family and patient expressed understanding and agreement. Discharge Plan Departure Patient Disposition: Home Clinical Impression: Pain in right arm, Acute right hip pain Instructions: How To Perform RICE (Rest, Ice, Compress, Elevate) Activity Restrictions/Additional Instructions: Continue to take all of your medications as directed. I would not be surprised if over the next 24 hours your even more sore than which you are currently. You can use your right arm and walk on your right leg as tolerated. Recommend Tylenol and ibuprofen for discomfort. The pain medication is for breakthrough pain. Also recommend ice. Return to the emergency department for new symptoms. Prescriptions: No Action prednisone 20 MG tablet 20 mg PO QDAY Qty: 8 0RF benzonatate [Tessalon Perles] 100 MG capsule 100 mg PO TIDP PRNQty: 10 0RF albuterol sulfate [Ventolin HFA] 90 MCG/PUFF HFA aerosol inhaler 0 puff INH Q4HP PRNQty: 1 0RF fluconazole [Diflucan] 100 mg tablet 100 mg PO DAILY Qty: 2 0RF Rx Instructions: use as directed clotrimazole 1 % cream 1 applic topical BID 28 Days Qty: 45 2RF terbinafine HCl 250 mg tablet 250 mg PO DAILY Qty: 14 0RF metoprolol tartrate 25 mg tablet 25 mg PO DAILY Patient Comments: take 1/2 tablet by mouth once daily Rx Instructions: takes 1/2 pill daily aspirin [Adult Low Dose Aspirin] 81 mg Tablet,Delayed Release (Dr/Ec) 81 mg PO DAILY Referrals: Gabriella Watts MD [Primary Care Provider] - Stand Alone Forms: Patient Portal/API
[2023-05-29] MEDS: HYDROMORPHONE 0.5 MG INJ IV (22:54)
[2023-05-29 23:01] VITALS: BP 152/72; PULSE 88; RESP 20; O2SAT 92
[2023-05-29] MEDS: ONDANSETRON 4 MG/2 ML INJ (23:04)
[2023-05-30 00:36] VITALS: BP 156/69; PULSE 92; RESP 18; O2SAT 94
[2023-05-30 01:08] VITALS: BP 150/71; PULSE 89; RESP 18; O2SAT 93
[2023-05-30] MEDS: HYDROCODONE/ACET 5/325 PREPACK 1 BOTTLE MISC (01:09)
== END 2023-05-30 01:22 | disposition home or self-care (01) ==
PROVIDERS: Emergency Provider Emergency Medicine; Family Provider Internal Medicine; PCP Internal Medicine
DX: M79.601 Pain in right arm (principal); M25.551 Pain in right hip; W01.0XXA Fall on same level from slipping, tripping and stumbling without subsequent striking against object, initial encounter
CPT/HCPCS: 36415; 73030; 73060; 73502; 96374; 96375; 99284; J1170; J2405

== ENCOUNTER → 2023-06-25 15:01 | Outpatient (CLI) | payer MEDICARE, OTHER, SELFPAY ==
--- NOTE | 2023-06-25 | DI.MRI.S_ITS ---
PROCEDURE: MR SHOULDER RT WO CON INDICATIONS: SHOULDER PAIN TECHNIQUE: Noncontrast oblique coronal T2 fast spin echo with fat saturation, oblique sagittal T1 spin echo and T2 fast spin echo with fat saturation, axial T1 spin echo and T2 fast spin echo with fat saturation through the shoulder. COMPARISON: [facility], MR, MR SHOULDER RT WO CON, 06/25/2020, 13:41. FINDINGS: Image quality: Excellent. Rotator cuff: There is full-thickness tearing of the entire supraspinatus tendon which demonstrates medial retraction and atrophy. Moderate T2 signal elevation throughout the infraspinatus tendon is present, indicating tendinopathy. Superimposed moderate grade intrasubstance tearing of the anterior infraspinatus tendon at the humeral insertion site extending to the musculotendinous junction, increased from the prior examination. Superimposed low-grade articular surface and intrasubstance tearing of the mid and posterior infraspinatus tendon at the humeral insertion site extending to the musculotendinous junction, increased from the prior examination. There is increased, full-thickness tearing of the mid subscapularis tendon at the humeral insertion sites. Teres minor is intact. Bones and bursae: No bone marrow contusions or fractures. Moderate acromioclavicular joint degeneration. The acromion demonstrates conventional anatomy, without an os acromiale. No pathologic subacromial-subdeltoid or subcoracoid bursal fluid is present. Capsule and soft tissues: Labrum is grossly unremarkable The long head of the biceps tendon is dislocated medially The rotator interval appears normal, without fibrosis. The coracohumeral ligament is normal in thickness. IMPRESSION: 1. Progressive full-thickness tearing of the supraspinatus tendon with associated atrophy. 2. Progressive full-thickness tearing of the mid subscapularis tendon. 3. Progressive partial-thickness tearing of the infraspinatus tendon as above. 4. Biceps tendon dislocation. 5. Acromioclavicular joint osteoarthritis. Dictated by: Chase Goldsmith M.D. on 06/25/2023 at 16:29 Approved by: Chase Goldsmith M.D. on 06/25/2023 at 16:32
--- NOTE | 2023-06-25 | DI.RAD.S_ITS ---
PROCEDURE: XR SHOULDER RT MIN 2V INDICATIONS: SHOULDER PAIN TECHNIQUE: Three views of the shoulder were acquired. COMPARISON: [facility], MR, MR SHOULDER RT WO CON, 06/25/2023, 15:13. [facility], CR, XR SHOULDER RT MIN 2V, 05/29/2023, 21:20. FINDINGS: Bones: No acute fractures or dislocations. No suspicious bony lesions. Visualized ribs appear intact. Moderate acromioclavicular joint osteoarthrosis. Soft tissues: Calcifications are seen at the posterosuperior humeral head, consistent with calcific tendinopathy. IMPRESSION: 1. Infraspinatus calcific tendinopathy. 2. Moderate acromioclavicular joint osteoarthrosis. Approved by: Raymond Marino M.D. on 06/25/2023 at 21:54
== END ==
PROVIDERS: Family Provider Internal Medicine; PCP Internal Medicine; Referring Provider Internal Medicine; Visit Provider Internal Medicine
DX: M75.121 Complete rotator cuff tear or rupture of right shoulder, not specified as traumatic (principal); M19.011 Primary osteoarthritis, right shoulder; M67.813 Other specified disorders of tendon, right shoulder; M25.511 Pain in right shoulder
CPT/HCPCS: 73030; 73221

== ENCOUNTER 2023-12-28 14:40 | Emergency (ER) | payer MEDICARE, OTHER, SELFPAY ==
[2023-12-28 14:51] VITALS: BP 151/74; PULSE 94; RESP 16; TEMP 36.4; O2SAT 96; BMI 33.1
--- NOTE | 2023-12-28 15:00 | PC.NURSE ---
assessed per CAR BODY DESIGNER
--- NOTE | 2023-12-28 15:15 | ED_ITS ---
HPI - Skin/Abscess/Foreign Bdy <LYNN Adamson - Last Filed: 12/28/23 15:23> General Chief complaint: Skin/Abscess/Foreign Body Stated complaint: staph infection Time Seen by Provider: 12/28/23 14:57 Source: patient Mode of arrival: Ambulatory History of Present Illness HPI narrative: 68-year-old female, former smoker, presents to the emergency department with right axilla rash. Patient had right shoulder surgery in July 2023 and has been helping her with shaving her armpits. Patient has a case of lower extremity staph infection, and is concerned he may have spread it to her. Patient did use some of her 's topical cream, but has not noticed any improvement. Patient denies any lumps, lesions or discharge. Related Data Home Medications Medication Instructions Recorded Confirmed aspirin 81 mg tablet,delayed 81 mg PO DAILY 03/12/19 03/12/19 release (Adult Low Dose Aspirin) metoprolol tartrate 25 mg tablet 25 mg PO DAILY 03/12/19 03/12/19 Previous Rx's Medication Instructions Recorded albuterol sulfate 90 mcg/actuation 0 puff INH Q4HP PRN #1 ea 04/09/17 aerosol inhaler (Ventolin HFA) benzonatate 100 mg capsule 100 mg PO TIDP PRN #10 caps 04/09/17 (Tessalon Perles) prednisone 20 mg tablet 20 mg PO QDAY #8 tabs 04/09/17 fluconazole 100 mg tablet 100 mg PO DAILY #2 tabs 01/02/20 (Diflucan) clotrimazole 1 % topical cream 1 applic topical BID 4 weeks #45 03/31/22 grams terbinafine HCl 250 mg tablet 250 mg PO DAILY #14 tabs 03/31/22 ketoconazole 2 % topical cream 1 applic topical BID Intertrigo 12/28/23 #60 grams Allergies Allergy/AdvReac Type Severity Reaction Status Date / Time iodine [IODINE] Allergy Severe RASH Verified 12/28/23 14:54 Penicillins [PENICILLINS] Allergy Severe SWELLING Verified 12/28/23 14:54 morphine [MORPHINE] AdvReac Mild N/V Verified 12/28/23 14:54 MUSHROOMS Allergy Severe STOPPED Uncoded 12/28/23 14:54 BREATHING Review of Systems <LYNN Adamson - Last Filed: 12/28/23 15:23> Review of Systems Narrative: Narrative: See HPI. GENERAL: Denies chills, fatigue, fever, sweats. HEENT: Denies sinus pain, ear pain, sore throat, difficulty swallowing, dizziness. RESPIRATORY: Denies dyspnea, cough, wheezing, sputum. CARDIOVASCULAR: Denies chest pain, palpitations, edema. GASTROINTESTINAL: Denies nausea, vomiting, abdominal pain, diarrhea, constipation. : Denies dysuria, frequency, incontinence, hematuria, urinary retention, flank pain. MSK: Denies weakness, joint pain, or bony pain. SKIN: Denies skin lesions. Endorses right axilla rash. NEUROLOGIC: Denies weakness, dizziness, headache, numbness, confusion. PSYCHIATRIC: No concerning psychosocial issues. Patient History <LYNN Adamson - Last Filed: 12/28/23 15:23> Medical History (Updated 01/12/24 @ 00:00 by ) Asthma Surgical History History of ankle surgery History of appendectomy Social History Smoking Status: Former smoker Smoking Status: Former smoker alcohol intake frequency: other Substance Use Type: does not use Exam <LYNN Adamson - Last Filed: 12/28/23 15:23> Narrative Exam Narrative: Exam Narrative: GENERAL: This is a well-nourished, well-developed patient, in no acute distress. HEAD: Atraumatic. Normocephalic. EYES: Pupils equal round and reactive. No scleral icterus, injection or drainage. ENT: Nose without bleeding, purulent drainage. Airway patent. TMs and canals clear. No sinus tenderness. NECK: Trachea midline. No JVD or lymphadenopathy. Nontender. CARDIOVASCULAR: Regular rate and rhythm without murmurs, peripheral pulses intact, cap refill <2 sec. RESPIRATORY: Breath sounds equal and clear bilaterally. No wheezes, rales, or rhonchi. No cough. No increased respiratory effort. No accessory muscle use. GASTROINTESTINAL: Abdomen soft, non-tender, nondistended without guarding or rebound. No suprapubic pain. MSK: Moves all extremities. Normal range of motion, no clubbing or edema. Neurovascularly intact. NEURO: A&O x 3. SKIN: Warm, dry, with no lesions noted. Erythematous rash with what appears to be sugar coating, consistent with intertrigo candidiasis of right axilla. Initial Vital Signs Initial Vital Signs: Vital Signs Temperature 97.6 F 12/28/23 14:51 Pulse Rate 94 H 12/28/23 14:51 Respiratory Rate 16 12/28/23 14:51 Blood Pressure 151/74 H 12/28/23 14:51 Pulse Oximetry 96 12/28/23 14:51 Oxygen Delivery Method Room Air 12/28/23 14:51 Reviewed <Antonio Aggarwal MD - Last Filed: 01/16/24 07:14> Initial Vital Signs Initial Vital Signs: Vital Signs Temperature 97.6 F 12/28/23 14:51 Pulse Rate 94 H 12/28/23 14:51 Respiratory Rate 16 12/28/23 14:51 Blood Pressure 151/74 H 12/28/23 14:51 Pulse Oximetry 96 12/28/23 14:51 Oxygen Delivery Method Room Air 12/28/23 14:51 Course <LYNN Adamson - Last Filed: 12/28/23 15:23> Vital Signs Vital signs: Vital Signs - 8 hr 12/28/23 14:51 Temperature 97.6 F Pulse Rate 94 H Respiratory Rate 16 Blood Pressure 151/74 H Pulse Oximetry 96 Oxygen Delivery Method Room Air <Antonio Aggarwal MD - Last Filed: 01/16/24 07:14> Vital Signs Vital signs: Vital Signs - 8 hr 12/28/23 14:51 Temperature 97.6 F Pulse Rate 94 H Respiratory Rate 16 Blood Pressure 151/74 H Pulse Oximetry 96 Oxygen Delivery Method Room Air MDM - Skin/Abscess/Foreign Bdy <LYNN Adamson - Last Filed: 12/28/23 15:23> Differential Diagnosis Differential diagnosis: Likely abscess of skin or subcutaneous tissue, urticaria, cellulitis, contact dermatitis and other (Intertrigo) MDM Narrative Medical decision making narrative: 68-year-old female with right axilla rash. Assessment was consistent with intertrigo candidiasis. No evidence of staph infection observed. Will treat with ketoconazole cream. Discussed supportive care measures that included daily cleansing of skin with mild soap and warm water, allowing to air dry or using a hair long goods drier on a cool setting, daily application of drying powders, etc.. Patient understands that if symptoms worsen after 72 hours or do not improve after 1 week, should be re-evaluated. Discussed plan of care and return precautions with patient and , who verbalized understanding and was agreeable with course of action. Discharge Plan Departure Patient Disposition: Home Clinical Impression: Candidiasis, intertrigo Instructions: DI for Intertrigo Activity Restrictions/Additional Instructions: *You have been diagnosed with intertrigo candidiasis. I am prescribing ketoconazole cream, which is a topical cream that can be used 1-2 times daily for 2-4 weeks as needed. Review your discharge instructions for treatment recommendations that include daily cleansing of affected area with warm water and soap, allowing to dry thoroughly with a hand dryer on a cool setting. For any worsening symptoms, please follow-up with your family doctor, go to the walk-in clinic or return to the emergency department. *What to do: *Please continue to take your regular medications as directed. [x ] New medication prescriptions sent to your pharmacy: [[facility]] [ ] New medication written as a paper prescription [ ] No new medications given *Please follow up with your primary care provider in 2-3 days, call for an appointment. Let them know you were seen in the Emergency Department and that we ask that you be seen in follow up. We will electronically transmit a record of today's note if your PCP is in our system *If you do not have a primary care provider please contact the [facility] Resource line at [phone]. They will ask some questions about your medical history and help get you set up with a doctor in the community. ? Return to ER if you should have any new, worsening or concerning symptoms, such as worsening pain, severe headache, confusion, chest pain, difficulty breathing, fever greater than 101 F, shaking chills, persistent vomiting to the point that you cannot drink fluids, or other new or worsening symptoms. Prescriptions: New ketoconazole 2 % cream 1 applic topical BID Qty: 60 0RF No Action prednisone 20 MG tablet 20 mg PO QDAY Qty: 8 0RF benzonatate [Tessalon Perles] 100 MG capsule 100 mg PO TIDP PRNQty: 10 0RF albuterol sulfate [Ventolin HFA] 90 MCG/PUFF HFA aerosol inhaler 0 puff INH Q4HP PRNQty: 1 0RF fluconazole [Diflucan] 100 mg tablet 100 mg PO DAILY Qty: 2 0RF Rx Instructions: use as directed clotrimazole 1 % cream 1 applic topical BID 28 Days Qty: 45 2RF terbinafine HCl 250 mg tablet 250 mg PO DAILY Qty: 14 0RF metoprolol tartrate 25 mg tablet 25 mg PO DAILY Patient Comments: take 1/2 tablet by mouth once daily Rx Instructions: takes 1/2 pill daily aspirin [Adult Low Dose Aspirin] 81 mg Tablet,Delayed Release (Dr/Ec) 81 mg PO DAILY Referrals: Gabriella Watts MD [Primary Care Provider] - Stand Alone Forms: Patient Portal/API ED Sign-out <Antonio Aggarwal MD - Last Filed: 01/16/24 07:14> Cosign ED Attending Cosignature Attestation: I was immediately available in the department for consultation. ?This documentation has been reviewed and I agree with assessment and plan. Supervised by Antonio Aggarwal MD
== END 2023-12-28 15:23 | disposition home or self-care (01) ==
PROVIDERS: Emergency Provider Registered Nurse; Family Provider Internal Medicine; PCP Internal Medicine
DX: B37.2 Candidiasis of skin and nail (principal)
CPT/HCPCS: 99281

== ENCOUNTER 2024-10-16 19:40 | Emergency (ER) | payer MEDICARE, OTHER, SELFPAY ==
[2024-10-16] VITALS (8 sets, daily range): BP systolic 108–133; BP diastolic 71–78; PULSE 91–101; RESP 16; TEMP 36.6; O2SAT 93–94; BMI 33.6
--- NOTE | 2024-10-16 20:26 | DI.CT.S_ITS ---
PROCEDURE: CT ABDOMEN PELVIS WO CON INDICATIONS: Abdominal pain TECHNIQUE: Axial sections were acquired from the lung bases to the pubic symphysis. Coronal and sagittal reformats were performed. For radiation dose reduction, the following was used: automated exposure control, adjustment of mA and/or kV according to patient size. COMPARISON: [facility], CT, CT KIDNEY URETER BLADDER (KUB), 01/02/2020, 19:38. FINDINGS: Image quality: Diagnostic. Lower Chest: Lung bases are clear. At least moderate coronary artery calcifications. Small hiatal hernia. URINARY: Right Kidney: Nonobstructing stone measuring 6 millimeters. Few peripelvic cysts are noted. No hydronephrosis. Right Ureter: No hydroureter. Left Kidney: No obstructing stones. Likely peripelvic cysts, less likely hydronephrosis. Left Ureter: No hydroureter. Bladder: Normal wall thickness. No stones. ABDOMEN: Liver: No contour-deforming solid mass. Hepatic steatosis. Gallbladder: No radiopaque gallstones or wall thickening. Biliary ducts: No biliary dilation. Pancreas: No ductal dilation. Spleen: Size is within normal limits. Adrenal Glands: Subcentimeter right adrenal nodule is stable. No left adrenal nodules. Stomach and Bowel: Normal colonic caliber, without significant wall thickening. Diverticulosis without evidence of acute diverticulitis. Peritoneum: No abnormal intraperitoneal fluid. No free air. Ventral Wall: No hernia. Abdominal Nodes: No enlarged retroperitoneal or mesenteric lymph nodes. Vessels: Aorta and inferior vena cava are normal in size. Atherosclerotic vascular calcifications. PELVIS: Pelvic Organs: Left ovarian cyst measuring 1.9 centimeters. Pelvic Nodes: Unremarkable. Miscellaneous: No inguinal hernias are seen. Bones: Degenerative changes of the spine. Decreased osseous mineralization. IMPRESSION: 1. Nonobstructing right renal stone measuring 6 millimeters. No hydronephrosis. 2. Likely left peripelvic cysts, less likely hydronephrosis. No hydroureter or stones are seen. 3. Hepatic steatosis. 4. Diverticulosis without evidence of acute diverticulitis. 5. Left ovarian cyst measuring 1.9 centimeters. Given age, nonurgent pelvic ultrasound is recommended. Dictated by: Jose Rodrigez M.D. on 10/16/2024 at 21:02 Approved by: Jose Rodrigez M.D. on 10/16/2024 at 21:08
[2024-10-16 20:27] LABS: Add Manual Diff / Slide Review NO; Basophils Absolute Auto 100 /uL (0-100); Eosinophils Absolute Auto 100 /uL (0-450); Eosinophils Percent Auto 1.1 % (2-4); Hematocrit 47.5 % (36-46); Hemoglobin 16.1 g/dL (12.0-16.0); Lymphocytes Absolute Auto 2800 /uL (1100-4500); Lymphocytes Percent Auto 20.9 % (25-40); Mean Corpuscular HGB Conc 33.8 % (30-36); Mean Corpuscular Hemoglobin 29.3 PG (26-34); Mean Corpuscular Volume 86.7 fL (80-100); Monocytes Absolute Auto 600 /uL (0-900); Monocytes Percent Auto 4.8 % (3-14); Neutrophils Absolute Auto 9600 /uL (1500-7000); Neutrophils Percent Auto 72.2 % (50-75); Platelet Count 269 X10^3/uL (150-400); Red Blood Cell Count 5.48 X10^6/uL (4.0-5.2); White Blood Cell Count 13.3 X10^3/uL (4.5-11.0)
[2024-10-16 20:40] LABS: Alanine Aminotransferase 32 IU/L (<35); Albumin 4.4 g/dL (3.5-5.0); Albumin Globulin Ratio 1.1 (1.0-2.8); Alkaline Phosphatase 120 U/L (38-126); Aspartate Aminotransferase 36 IU/L (14-36); BUN Creatinine Ratio 29.2 (6-22); Bilirubin Total 0.6 mg/dL (0.2-1.3); Blood Urea Nitrogen 14 mg/dL (7-17); Calcium 9.9 mg/dL (8.4-10.2); Carbon Dioxide 26 mmol/L (22-32); Chloride 99 mmol/L (98-107); Estimated Glomerular Filt Rate > 60 mL/min (>60); Globulin 4.1 g/dL (1.7-4.1); Glucose 237 mg/dL (80-110); HEMOLYSIS < 15 (0-50); Lipase 159 U/L (23-300); Potassium 3.9 mmol/L (3.4-5.1); Sodium 133 mmol/L (137-145); Total Protein 8.5 g/dL (6.3-8.2)
[2024-10-16] MEDS: PANTOPRAZOLE 40 MG VIAL IV (20:49)
[2024-10-16] MEDS: MAG HYDROX/ALUMINUM/SIMETH SUS 20 ML, LIDOCAINE VISCOUS 2% 15 ML PO (20:49)
--- NOTE | 2024-10-16 21:06 | ED.GENADULT ---
HPI - General Adult General Chief complaint: Abdominal Pain Stated complaint: abd px, nausea, black and tarry stool, VILLALOBOS Time Seen by Provider: 10/16/24 20:02 Source: patient Mode of arrival: Wheelchair History of Present Illness HPI narrative: Patient is a 69-year-old female who has not had a bowel movement in the past 5 days. Is here for evaluation of lower abdominal pain and nausea. Had 1 episode of black stool a couple days ago but nothing since then. No vomiting. Also reports a slight headache. No fevers. Does not take anticoagulation. Is on an aspirin but no other blood thinners. No urinary symptoms. Recent travel. No recent antibiotics. Related Data Home Medications Medication Instructions Recorded Confirmed aspirin 81 mg tablet,delayed 81 mg PO DAILY 03/12/19 03/12/19 release (Adult Low Dose Aspirin) metoprolol tartrate 25 mg tablet 25 mg PO DAILY 03/12/19 03/12/19 Previous Rx's Medication Instructions Recorded albuterol sulfate 90 mcg/actuation 0 puff INH Q4HP PRN #1 ea 04/09/17 aerosol inhaler (Ventolin HFA) benzonatate 100 mg capsule 100 mg PO TIDP PRN #10 caps 04/09/17 (Tessalon Perles) prednisone 20 mg tablet 20 mg PO QDAY #8 tabs 04/09/17 fluconazole 100 mg tablet 100 mg PO DAILY #2 tabs 01/02/20 (Diflucan) clotrimazole 1 % topical cream 1 applic topical BID 4 weeks #45 03/31/22 grams terbinafine HCl 250 mg tablet 250 mg PO DAILY #14 tabs 03/31/22 ketoconazole 2 % topical cream 1 applic topical BID Intertrigo 12/28/23 #60 grams Allergies Allergy/AdvReac Type Severity Reaction Status Date / Time iodine [IODINE] Allergy Severe RASH Verified 12/28/23 14:54 Penicillins [PENICILLINS] Allergy Severe SWELLING Verified 12/28/23 14:54 morphine [MORPHINE] AdvReac Mild N/V Verified 12/28/23 14:54 MUSHROOMS Allergy Severe STOPPED Uncoded 12/28/23 14:54 BREATHING Review of Systems Review of Systems ROS Unobtainable: All systems reviewed & are unremarkable except as noted in HPI and below Patient History Medical History Asthma Surgical History History of ankle surgery History of appendectomy Social History Smoking Status: Former smoker Smoking Status: Former smoker alcohol intake frequency: other Exam Initial Vital Signs Initial Vital Signs: Vital Signs Temperature 97.8 F 10/16/24 19:52 Pulse Rate 101 H 10/16/24 19:52 Respiratory Rate 16 10/16/24 19:52 Blood Pressure 133/78 10/16/24 19:52 Pulse Oximetry 94 10/16/24 19:52 Oxygen Delivery Method Room Air 10/16/24 19:52 Const General: cooperative, comfortable and No ill appearing HENMT Head: normal to inspection and normocephalic Resp Effort & Inspection: normal respiratory effort Cardio Rate: regular rate GI Inspection: normal to inspection and non-distended Palpation: soft, No firm, No guarding and tender Skin General: no rashes or lesions noted Neuro General: patient alert, patient awake and moves all extremities Extrem General: capillary refill normal Course Orders Ordered: ED Orders 10/16/24 20:15 Complete Blood Count AUTO DIFF Stat Comprehensive Metabolic Panel Stat Lactate (Lactic Acid) Stat Lipase Stat PTT Partial Thromboplastin [place] Stat Prothrombin Time INR Stat 10/16/24 20:26 CT abdomen pelvis wo con Stat Discontinued Medications Al Hydrox/Mg Hydrox/Simethicone 20 ml/ Lidocaine HCl 15 ml 0 ml PO NOW ONE Stop: 10/16/24 20:44 Last Admin: 10/16/24 20:49 Dose: 35 ml Documented By: Ondansetron HCl (Ondansetron 4 Mg/2 Ml Inj) 4 mg IV NOW ONE Stop: 10/16/24 21:29 Last Admin: 10/16/24 22:14 Dose: 4 mg Documented By: Ondansetron HCl (Ondansetron 4 Mg Odt Prepack) 1 bottle MISC DIRECTED ONE Stop: 10/16/24 22:03 Last Admin: 10/16/24 22:14 Dose: 1 bottle Documented By: Pantoprazole Sodium (Pantoprazole 40 Mg Vial) 40 mg IV NOW ONE Stop: 10/16/24 20:43 Last Admin: 10/16/24 20:49 Dose: 40 mg Documented By: AB Vital Signs Vital signs: Vital Signs - 8 hr 10/16/24 19:52 10/16/24 20:27 10/16/24 20:30 Temperature 97.8 F Pulse Rate 101 H 92 H 92 H Respiratory Rate 16 Blood Pressure 133/78 Pulse Oximetry 94 93 93 Oxygen Delivery Method Room Air 10/16/24 21:00 10/16/24 21:03 10/16/24 21:03 Temperature Pulse Rate 94 H 93 H Respiratory Rate Blood Pressure 111/71 Pulse Oximetry 93 93 Oxygen Delivery Method Room Air 10/16/24 21:30 10/16/24 21:30 10/16/24 22:00 Temperature Pulse Rate 91 H 91 H Respiratory Rate Blood Pressure 108/72 Pulse Oximetry 94 93 Oxygen Delivery Method 10/16/24 22:01 10/16/24 22:01 Temperature Pulse Rate 91 H Respiratory Rate Blood Pressure 112/73 Pulse Oximetry 93 Oxygen Delivery Method Medical Decision Making Lab Data Lab results reviewed: Yes I reviewed the patient's lab results. 10/16/24 20:15 10/16/24 20:15 Labs: Lab Results 10/16/24 Range/Units 20:15 WBC 13.3 H (4.5-11.0) X10^3/uL RBC 5.48 H (4.0-5.2) X10^6/uL Hgb 16.1 H (12.0-16.0) g/dL Hct 47.5 H (36-46) % MCV 86.7 (80-100) fL MCH 29.3 (26-34) PG MCHC 33.8 (30-36) % RDW 14.0 (11.6-14.8) % Plt Count 269 (150-400) X10^3/uL Neut % (Auto) 72.2 (50-75) % Lymph % (Auto) 20.9 L (25-40) % [place] % (Auto) 4.8 (3-14) % Eos % (Auto) 1.1 L (2-4) % Baso % (Auto) 1.0 (0-2) % Neut # (Auto) 9600 H (0502-7472) /uL Lymph # (Auto) 2800 (7103-5552) /uL [place] # (Auto) 600 (0-900) /uL Eos # (Auto) 100 (0-450) /uL Baso # (Auto) 100 (0-100) /uL Sodium 133 L (137-145) mmol/L Potassium 3.9 (3.4-5.1) mmol/L Chloride 99 (98-107) mmol/L Carbon Dioxide 26 (22-32) mmol/L BUN 14 (7-17) mg/dL Creatinine 0.48 L (0.52-1.04) mg/dL Estimated GFR > 60 (>60) mL/min BUN/Creatinine Ratio 29.2 H (6-22) Glucose 237 H (80-110) mg/dL Lactate 2.0 (0.7-2.1) mmol/L Calcium 9.9 (8.4-10.2) mg/dL Total Bilirubin 0.6 (0.2-1.3) mg/dL AST 36 (14-36) IU/L ALT 32 (<35) IU/L Alkaline Phosphatase 120 (38-126) U/L Total Protein 8.5 H (6.3-8.2) g/dL Albumin 4.4 (3.5-5.0) g/dL Globulin 4.1 (1.7-4.1) g/dL Albumin/Globulin Ratio 1.1 (1.0-2.8) Lipase 159 (23-300) U/L Imaging Data CT scan - abdomen/pelvis: Radiologist's Impression: PROCEDURE: CT ABDOMEN PELVIS WO CON INDICATIONS: Abdominal pain TECHNIQUE: Axial sections were acquired from the lung bases to the pubic symphysis. Coronal and sagittal reformats were performed. For radiation dose reduction, the following was used: automated exposure control, adjustment of mA and/or kV according to patient size. COMPARISON: [facility], CT, CT KIDNEY URETER BLADDER (KUB), 01/02/2020, 19:38. FINDINGS: Image quality: Diagnostic. Lower Chest: Lung bases are clear. At least moderate coronary artery calcifications. Small hiatal hernia. URINARY: Right Kidney: Nonobstructing stone measuring 6 millimeters. Few peripelvic cysts are noted. No hydronephrosis. Right Ureter: No hydroureter. Left Kidney: No obstructing stones. Likely peripelvic cysts, less likely hydronephrosis. Left Ureter: No hydroureter. Bladder: Normal wall thickness. No stones. ABDOMEN: Liver: No contour-deforming solid mass. Hepatic steatosis. Gallbladder: No radiopaque gallstones or wall thickening. Biliary ducts: No biliary dilation. Pancreas: No ductal dilation. Spleen: Size is within normal limits. Adrenal Glands: Subcentimeter right adrenal nodule is stable. No left adrenal nodules. Stomach and Bowel: Normal colonic caliber, without significant wall thickening. Diverticulosis without evidence of acute diverticulitis. Peritoneum: No abnormal intraperitoneal fluid. No free air. Ventral Wall: No hernia. Abdominal Nodes: No enlarged retroperitoneal or mesenteric lymph nodes. Vessels: Aorta and inferior vena cava are normal in size. Atherosclerotic vascular calcifications. PELVIS: Pelvic Organs: Left ovarian cyst measuring 1.9 centimeters. Pelvic Nodes: Unremarkable. Miscellaneous: No inguinal hernias are seen. Bones: Degenerative changes of the spine. Decreased osseous mineralization. IMPRESSION: 1. Nonobstructing right renal stone measuring 6 millimeters. No hydronephrosis. 2. Likely left peripelvic cysts, less likely hydronephrosis. No hydroureter or stones are seen. 3. Hepatic steatosis. 4. Diverticulosis without evidence of acute diverticulitis. 5. Left ovarian cyst measuring 1.9 centimeters. Given age, nonurgent pelvic ultrasound is recommended. MDM Narrative Medical decision making narrative: After time here in the emergency department patient states her symptoms have almost completely resolved. CT scan shows no signs of bowel obstruction, diverticulitis, appendicitis, ureteral stone. No fevers. No indication for emergent surgical consultation. We did discuss the possibility of constipation. Discussed the use of laxatives and stool softener at home. Patient was tolerating oral intake. Discussed return precautions and follow-up instructions. They expressed understanding and agreement with plan. Discharge Plan Departure Patient Disposition: Home Clinical Impression: Abdominal pain Instructions: Constipation, DI for Abdominal Pain-Adult Activity Restrictions/Additional Instructions: Be sure that you were increasing your fluid intake. I would recommend taking a laxative. Magnesium citrate or MiraLax are examples of these. These can be purchased [id number]. Contact your primary care doctor for a follow-up. Return to the emergency department for new or worsening symptoms. Prescriptions: No Action prednisone 20 MG tablet 20 mg PO QDAY Qty: 8 0RF benzonatate [Tessalon Perles] 100 MG capsule 100 mg PO TIDP PRNQty: 10 0RF albuterol sulfate [Ventolin HFA] 90 MCG/PUFF HFA aerosol inhaler 0 puff INH Q4HP PRNQty: 1 0RF fluconazole [Diflucan] 100 mg tablet 100 mg PO DAILY Qty: 2 0RF Rx Instructions: use as directed clotrimazole 1 % cream 1 applic topical BID 28 Days Qty: 45 2RF terbinafine HCl 250 mg tablet 250 mg PO DAILY Qty: 14 0RF ketoconazole 2 % cream 1 applic topical BID Qty: 60 0RF metoprolol tartrate 25 mg tablet 25 mg PO DAILY Patient Comments: take 1/2 tablet by mouth once daily Rx Instructions: takes 1/2 pill daily aspirin [Adult Low Dose Aspirin] 81 mg Tablet,Delayed Release (Dr/Ec) 81 mg PO DAILY Referrals: Gabriella Watts MD [Primary Care Provider] - Stand Alone Forms: Patient Portal/API/Survey
[2024-10-16] MEDS: ONDANSETRON 4 MG/2 ML INJ IV (22:14)
[2024-10-16] MEDS: ONDANSETRON 4 MG ODT PREPACK 1 BOTTLE MISC (22:14)
[2024-10-16 22:38] LABS: INR 0.9 (0.9-1.3); Prothrombin Time 10.6 SECONDS (9.4-12.5)
[2024-10-16 22:41] LABS: PTT Partial Thromboplastin Tim 35 SECONDS (25.1-36.5)
== END 2024-10-16 22:24 | disposition home or self-care (01) ==
PROVIDERS: Emergency Provider Emergency Medicine; Family Provider Internal Medicine; PCP Internal Medicine
DX: R10.30 Lower abdominal pain, unspecified (principal); R11.0 Nausea; R51.9 Headache, unspecified; Z79.82 Long term (current) use of aspirin
CPT/HCPCS: 36415; 74176; 80053; 83605; 83690; 85025; 85610; 85730; 96374; 96375; 99284; J2405; J2470

== ENCOUNTER → 2025-01-16 13:44 | Outpatient (CLI) | payer MEDICARE, OTHER, SELFPAY ==
--- NOTE | 2025-01-16 13:46 | DI.MG.S_ITS ---
MM screening mammo BI: 01/16/2025. BI-RADS: 0 CLINICAL: 69-year old female for bilateral screening mammogram. Tyrer-Cuzick lifetime risk of 11.9%. No personal or first-degree family history of breast cancer. The patient had a prior left breast biopsy. PRIOR EXAMS 10/27/2014. MAMMOGRAPHY TECHNIQUE: 2D and 3D (tomosynthesis) digital mammographic views obtained, with additional images as needed for full coverage. Current study was also evaluated with a Computer Aided Detection (CAD) system. DENSITY C. The breasts are heterogeneously dense, which may obscure small masses. MAMMOGRAPHY FINDINGS Right: Upper Outer at 10:30, Middle depth: There are suspicious grouped calcifications. Suspected calcifications needing additional imaging evaluation. Left: Upper Outer at 1:00, Middle depth: Suspected calcifications needing additional imaging evaluation. IMPRESSION: Right (Calcification): Upper Outer at 10:30, Middle depth * Incomplete - calcification needing additional imaging evaluation. Left (Calcification): Upper Outer at 1:00, Middle depth * Incomplete - calcification needing additional imaging evaluation. RECOMMENDATIONS Right: Upper Outer at 10:30, Middle depth * Further evaluation with diagnostic mammography. Left: Upper Outer at 1:00, Middle depth * Further evaluation with diagnostic mammography. OVERALL ASSESSMENT CATEGORY BI-RADS-0: Incomplete - Need Additional Imaging Evaluation. ELECTRONICALLY SIGNED: Kwame Tee M.D. on 01/17/2025 at 03:34:45 PM PT Interpreting Station ID: [id number]
--- NOTE | 2025-01-16 13:47 | DI.RAD.S_ITS ---
PROCEDURE: XR DEXA AXIAL SKELETON INDICATIONS: ROUTINE SCREENING/SCREENING FOR OSTEOPOROSIS COMPARISON: None. FINDINGS: Lumbar Spine: Bone mineral density 0.920 g/cm2, T score -1.2. Left Femoral Neck: Bone mineral density 0.634 g/cm2, T score -1.9 Left Hip: Bone mineral density 0.781 g/cm2, T score -1.3. Fracture Risk Calculation (when applicable): 10-year fracture risk of a major osteoporotic fracture 11 percent and of a hip fracture 2.1 percent. (T score greater or equal to -1.0 to: NORMAL) (T score from -1.1 to -2.4: OSTEOPENIA) (T score less than or equal to -2.5: OSTEOPOROSIS) IMPRESSION: Osteopenia---recommend repeat DEXA in 2-3 years for reassessment. Follow-up guidelines as follows: Osteoporosis: Consider a repeat DEXA and Vertebral Fracture Assessment (VFA) exam in 2 years or sooner if medically necessary, to reassess this patient's status. Osteopenia: Consider a repeat DEXA in 2-3 years to reassess this patient's status, or if there is a new clinical indication. Normal: Consider a repeat DEXA in 5 years or sooner, or if there is a new clinical indication. All treatment decisions require clinical judgment and consideration of individual patient factors, including patient preferences, comorbidities, previous drug use, risk factors not captured in the FRAX model (e.g., frailty, falls, vitamin D deficiency, increased bone turnover, interval significant decline in bone density ) and possible under- or over-estimation of fracture risk by FRAX. In addition, the NOF Guide recommends that FDA-approved medical therapies be considered in postmenopausal women and men age >= 50 years with a: * Hip or vertebral (clinical or morphometric) fracture * T-score of <=-2.5 at the spine or hip * Ten-year fracture probability by FRAX of >= 3% for hip fracture or >=20% for major osteoporotic fracture. Dictated by: Farhan Mora M.D. on 01/17/2025 at 6:42 Approved by: Farhan Mora M.D. on 01/17/2025 at 6:43
== END ==
LOC: MAMMO 13:45
PROVIDERS: Family Provider Internal Medicine; PCP Internal Medicine; Referring Provider Internal Medicine; Visit Provider Internal Medicine
DX: Z12.31 Encounter for screening mammogram for malignant neoplasm of breast (principal); Z78.0 Asymptomatic menopausal state; Z13.820 Encounter for screening for osteoporosis; M85.89 Other specified disorders of bone density and structure, multiple sites; R92.333 Mammographic heterogeneous density, bilateral breasts
CPT/HCPCS: 77063; 77067; 77080

== ENCOUNTER → 2025-03-05 13:06 | Outpatient (CLI) | payer MEDICARE, OTHER, SELFPAY ==
--- NOTE | 2025-03-05 13:08 | DI.US.S_ITS ---
PROCEDURE: US ABDOMEN COMPLETE INDICATIONS: lt lower quadrant pain TECHNIQUE: Real-time scanning was performed of the abdominal and retroperitoneal organs, with image documentation. COMPARISON: [facility], CT, CT KIDNEY URETER BLADDER (KUB), 01/02/2020, 19:38. [facility], CT, CT ABDOMEN PELVIS WO CON, 10/16/2024, 20:35. FINDINGS: Liver: Measures 17.8 cm. Increased in echogenicity. Decreased sonographic penetration. Main portal vein demonstrates hepatopetal flow. Gallbladder: Nondilated. Sludge is present. No definite gallstones. Normal gallbladder wall thickness. No pericholecystic fluid. Negative sonographic Hernandez's sign. Biliary ducts: Intrahepatic bile ducts are not well seen. Extrahepatic bile duct caliber measures 12 mm. Normal is 6-7 mm or less in diameter, or 10 mm or less post-cholecystectomy. Pancreas: Not well seen due to overlying bowel gas. Spleen: Spleen is normal in size and homogeneous in echotexture. Measures 9.4 cm. Kidneys: Kidneys are normal in size and echotexture. Right kidney measures 12.1 cm long; left kidney measures 13.8 cm long. No hydronephrosis or nephrolithiasis. Left peripelvic cysts. No solid masses. Aorta: Visualized aorta is normal in caliber at less than 3 cm. Iliacs: Proximal common iliac arteries are normal in caliber at less than 2.5 cm. IVC: Intrahepatic inferior vena cava is patent. Miscellaneous: No free abdominal fluid. IMPRESSION: Exam is technically difficult due to decrease sonographic penetration of the liver and bowel gas. 1. Increased hepatic echogenicity most consistent with hepatic steatosis. Other forms of hepatocellular disease could have similar appearance. 2. Prominent extrahepatic bile duct measuring 1.2 cm. Recommend correlation with serum bilirubin. -MRCP could be considered for further evaluation. 3. No convincing hydronephrosis. Benign left peripelvic cysts are again seen. CT abdomen pelvis with IV contrast could be considered for further evaluation. Dictated by: Nehemias Umana M.D. on 03/05/2025 at 16:27 Approved by: Nehemias Umana M.D. on 03/05/2025 at 16:37
== END ==
PROVIDERS: Family Provider Internal Medicine; PCP Internal Medicine; Referring Provider Internal Medicine; Visit Provider Internal Medicine
DX: N28.1 Cyst of kidney, acquired (principal); K82.8 Other specified diseases of gallbladder; R10.32 Left lower quadrant pain
CPT/HCPCS: 76700

== ENCOUNTER → 2025-04-30 09:27 | Outpatient (CLI) | payer MEDICARE, OTHER, SELFPAY ==
--- NOTE | 2025-04-30 09:28 | DI.CT.S_ITS ---
PROCEDURE: CT ABDOMEN PELVIS WO CON INDICATIONS: pain TECHNIQUE: CT of the abdomen and pelvis was obtained without intravenous contrast. Coronal and sagittal reformats were performed. For radiation dose reduction, the following was used: automated exposure control, adjustment of mA and/or kV according to patient size. COMPARISON: [facility], CT, CT ABDOMEN PELVIS WO CON, 10/16/2024, 20:35. FINDINGS: Image quality: Diagnostic. Lower Chest: No significant findings. ABDOMEN: Liver: No contour-deforming mass. The liver is diffusely hypodense suggesting fatty infiltration. Gallbladder: No radiopaque gallstones or wall thickening. Biliary ducts: No biliary dilation. Pancreas: No ductal dilation. Spleen: Size is within normal limits. Adrenal Glands: No adrenal nodules. Kidneys and Ureters: A nonobstructing 0.8 cm calculus is present within the right kidney. No hydronephrosis. There are bilateral low-density pararenal cysts. No hydroureter or ureterolithiasis. No perinephric fat stranding. Stomach and Bowel: There is a small hiatal hernia. Normal colonic caliber, without significant wall thickening. There are scattered sigmoid diverticula. No evidence for diverticulitis. The appendix is not visualized; however there is no discrete right lower quadrant fluid or fat stranding to suggest acute appendicitis. Peritoneum: No abnormal intraperitoneal fluid. No free air. Ventral Wall: No significant hernia. Abdominal Nodes: No retroperitoneal or mesenteric adenopathy by size criteria. Vessels: There are scattered atheromatous calcifications throughout the aorta and iliac arteries bilaterally. PELVIS: Pelvic Organs: The uterus is unremarkable. A 1.3 cm low-density cyst is visualized within the left ovary, likely similar to the study dated October 16, 2024. Bladder: The bladder is thin walled. No bladder calculi. Pelvic Nodes: No enlarged lymph nodes. Miscellaneous: No inguinal hernias are seen. Bones: No aggressive osseous abnormality. IMPRESSION: 1. No hydronephrosis, hydroureter, or ureterolithiasis. Nonobstructing right nephrolithiasis. 2. No acute intra-abdominal findings. The appendix is not visualized; however there are no findings to suggest acute appendicitis. 3. Diverticulosis. No acute diverticulitis. 4. Probable left adnexal cyst. If further characterization is warranted, pelvic ultrasound could be used. Dictated by: Nitza Ozuna M.D. on 05/01/2025 at 8:45 Approved by: Nitza Ozuna M.D. on 05/01/2025 at 8:51
== END ==
LOC: CT 09:28
PROVIDERS: Family Provider Internal Medicine; PCP Internal Medicine; Referring Provider Internal Medicine; Visit Provider Internal Medicine
DX: N20.0 Calculus of kidney (principal); R10.32 Left lower quadrant pain; K44.9 Diaphragmatic hernia without obstruction or gangrene; K57.30 Diverticulosis of large intestine without perforation or abscess without bleeding
CPT/HCPCS: 74176

== ENCOUNTER → 2025-04-30 09:29 | Outpatient (CLI) | payer MEDICARE, OTHER, SELFPAY ==
--- NOTE | 2025-04-30 09:31 | DI.MG.S_ITS ---
MM diagnostic mammo BI: 04/30/2025. BI-RADS: 4 CLINICAL: 70-year old female for bilateral diagnostic mammogram that is a recall from screening on 01/16/2025. Tyrer-Cuzick lifetime risk of 11.3%. No personal or first-degree family history of breast cancer. The patient had a prior left breast biopsy. PRIOR EXAMS Mammogram(s): 01/16/2025, 10/27/2014. MAMMOGRAPHY TECHNIQUE: 2D and 3D (tomosynthesis) digital mammographic views obtained, with additional images as needed for full coverage. Current study was also evaluated with a Computer Aided Detection (CAD) system. DENSITY C. The breasts are heterogeneously dense, which may obscure small masses. MAMMOGRAPHY FINDINGS Right: Upper Outer at 10:30: There are suspicious grouped amorphous calcifications. Left: Upper Outer at 1:00: There are suspicious grouped amorphous calcifications. IMPRESSION: Right (Calcification): Upper Outer at 10:30 * Suspicious findings with likelihood of malignancy. Left (Calcification): Upper Outer at 1:00 * Suspicious findings with likelihood of malignancy. RECOMMENDATIONS Right: Upper Outer at 10:30, Middle depth * Stereotactic-guided biopsy for further evaluation. Left: Upper Outer at 1:00, Middle depth * Stereotactic-guided biopsy for further evaluation. OVERALL ASSESSMENT CATEGORY BI-RADS-4: Suspicious. ELECTRONICALLY SIGNED: Rivera Ryan M.D. on 04/30/2025 at 11:26:28 AM PT Interpreting Station ID: [id number]
== END ==
LOC: MAMMO 09:30
PROVIDERS: Family Provider Internal Medicine; PCP Internal Medicine; Referring Provider Internal Medicine; Visit Provider Internal Medicine
DX: R92.8 Other abnormal and inconclusive findings on diagnostic imaging of breast (principal); R92.1 Mammographic calcification found on diagnostic imaging of breast; R92.333 Mammographic heterogeneous density, bilateral breasts; R10.32 Left lower quadrant pain; N20.0 Calculus of kidney; K44.9 Diaphragmatic hernia without obstruction or gangrene; K57.30 Diverticulosis of large intestine without perforation or abscess without bleeding
CPT/HCPCS: 74176; 77066; G0279